=== PATIENT | male | born 1960 | race Caucasian/White ===

== ENCOUNTER 2017-06-12 23:45 | Inpatient (IN) | payer BC ==
[~2017-06-12] VITALS: Ht 172.7 cm; Wt 100.7 kg
[~2017-06-12 23:45] MED LIST: KEFLEX500 MG PO; MOTRIN800 MG PO
[2017-06-12 23:51] VITALS: BP 197/73
[2017-06-13] VITALS (11 sets, daily range): BP systolic 138–187; BP diastolic 58–118
[2017-06-13 00:40] LABS: HEMATOCRIT 46.4 % (42.0-52.0); HEMOGLOBIN 14.4 g/dl (14.0-18.0); MEAN CELL VOLUME 92.6 fl (80.0-94.0); MEAN CORPUSCULAR HGB 28.7 pg (27.0-31.0); MEAN PLATELET VOLUME 10.7 fl (9.6-12.3); PLATELET COUNT AUTOMATED 225 10*3/uL (130-400); RED BLOOD COUNT 5.01 10*6/uL (4.50-5.90); RED CELL DISTRI WIDTH 13.2 % (0-14.5); WHITE BLOOD COUNT 27.9 10*3/uL (4.8-10.8)
[2017-06-13 01:04] LABS: ALBUMIN 2.8 gm/dl (3.1-4.5); ALKALINE PHOSPHATASE 151 U/L (45-117); BUN 39 mg/dl (7-24); CHLORIDE 99 mmol/L (98-107); CREATININE 1.85 mg/dL (0.70-1.30); POTASSIUM 5.2 mmol/L (3.5-5.1); SGOT/AST 17 IU/L (3-35); SGPT/ALT 25 U/L (12-78); SODIUM 134 mmol/L (136-145); TOTAL PROTEIN 7.7 gm/dL (6.4-8.2)
[2017-06-13 01:07] LABS: PLATELET SUFFICIENCY NORMAL (NORMAL); TOTAL CELLS COUNTED 100 #CELLS
[2017-06-13 01:08] LABS: TROPONIN I < 0.015 ng/ml (<0.045)
[2017-06-13 01:33] LABS: ABG HCO3 3.5 mmol/l (22-26); ABG O2 SATURATION 97.8 % (95-97)
[2017-06-13 01:34] LABS: ABG BASE EXCESS -25.7 mmol/L (-2.0-2.0); ARTERIAL BLOOD GAS PH 7.126 (7.35-7.45)
[2017-06-13] MEDS ORDERED: QUINAPRIL20 MG PO (01:39)
[2017-06-13] MEDS ORDERED: Lopressor25 MG PO (01:40)
[2017-06-13] MEDS ORDERED: INVOKAMET 150-1 EACH PO (01:41)
[2017-06-13] MEDS ORDERED: FUROSEMIDE20 M1 PO (01:44)
[2017-06-13] MEDS ORDERED: KLOR-CON 1010 ME1 PO (01:46)
[2017-06-13] MEDS ORDERED: PRAVACHOL40 MG PO (01:47)
[2017-06-13 02:13] LABS: BILIRUBIN 1+ (NEGATIVE); BLOOD 2+ (NEGATIVE); CLARITY CLEAR (CLEAR); COLOR YELLOW (YELLOW); GLUCOSE 2+ (NEGATIVE); KETONE 3+ (NEGATIVE); LEUKO ESTERASE NEGATIVE (NEGATIVE); NITRITE NEGATIVE (NEGATIVE); UROBILINOGEN 0.2 E.U./dl (0.2-1.0)
[2017-06-13] MEDS ORDERED: HUMALOG 751 UNIT/0.0 SQ (03:27)
[2017-06-13] MEDS ORDERED: FARXIGA5 M1 PO (03:27)
[2017-06-13] MEDS ORDERED: SOLIQUA SQ (03:30)
[2017-06-13 04:19] LABS: HEMATOCRIT 45.5 % (42.0-52.0); HEMOGLOBIN 14.4 g/dl (14.0-18.0); MEAN CELL VOLUME 91.7 fl (80.0-94.0); MEAN CORPUSCULAR HGB CONC 31.6 g/dl (33.0-37.0); MEAN PLATELET VOLUME 10.1 fl (9.6-12.3); PLATELET COUNT AUTOMATED 221 10*3/uL (130-400); RED BLOOD COUNT 4.96 10*6/uL (4.50-5.90); RED CELL DISTRI WIDTH 13.2 % (0-14.5); WHITE BLOOD COUNT 26.2 10*3/uL (4.8-10.8)
[2017-06-13 04:31] LABS: ACT PARTIAL THROMBO TIME 33.9 SECONDS (20.8-31.5)
[2017-06-13 04:32] LABS: CREATININE 1.7 mg/dL (0.70-1.30); POTASSIUM 4.3 mmol/L (3.5-5.1)
[2017-06-13 04:37] LABS: PHOSPHOROUS 2.7 mg/dL (2.5-4.9)
[2017-06-13 04:43] LABS: THYROID STIM HORMONE (HS) 0.439 uIU/ml (0.358-4.75)
[2017-06-13 05:04] LABS: PLATELET SUFFICIENCY NORMAL (NORMAL); TOTAL CELLS COUNTED 100 #CELLS
[2017-06-13 08:15] LABS: VITAMIN D, 25-HYDROXY < 4.2 ng/mL (30-100)
[2017-06-13 08:41] LABS: CREATININE 1.66 mg/dL (0.70-1.30); POTASSIUM 4.5 mmol/L (3.5-5.1)
[2017-06-13 12:16] LABS: BUN 36 mg/dl (7-24); CHLORIDE 114 mmol/L (98-107); POTASSIUM 4.3 mmol/L (3.5-5.1); SODIUM 143 mmol/L (136-145)
[2017-06-13 12:17] LABS: TROPONIN I < 0.015 ng/ml (<0.045)
[2017-06-13 16:27] LABS: CREATININE 1.53 mg/dL (0.70-1.30); POTASSIUM 4.4 mmol/L (3.5-5.1)
[2017-06-14] VITALS: BP 110/62
[2017-06-14 04:00] VITALS: BP 110/62
[2017-06-14 05:33] LABS: BASO % 0.2 % (0.0-1.0); EOS % 0.2 % (1.0-4.0); HEMOGLOBIN 12.6 g/dl (14.0-18.0); LYMPH # 0.7 10*3/uL (1.3-4.4); LYMPH % 6.7 % (27.0-41.0); MEAN CORPUSCULAR HGB 28.5 pg (27.0-31.0); MEAN CORPUSCULAR HGB CONC 32.3 g/dl (33.0-37.0); MEAN PLATELET VOLUME 10.2 fl (9.6-12.3); MONO # 0.9 10*3/uL (0.1-1.0); MONO % 8.1 % (3.0-9.0); NEUT # 9.2 10*3/uL (2.3-7.9); NEUT % 83.5 % (47.0-73.0); PLATELET COUNT AUTOMATED 170 10*3/uL (130-400); RED BLOOD COUNT 4.42 10*6/uL (4.50-5.90); RED CELL DISTRI WIDTH 13.5 % (0-14.5); WHITE BLOOD COUNT 11.1 10*3/uL (4.8-10.8)
[2017-06-14 05:43] LABS: MEAN CELL VOLUME 88.2 fl (80.0-94.0)
[2017-06-14 05:49] LABS: ALBUMIN 2.4 gm/dl (3.1-4.5); BUN 27 mg/dl (7-24); CHLORIDE 109 mmol/L (98-107); CREATININE 1.24 mg/dL (0.70-1.30); LIPASE 154 U/L (73-393); POTASSIUM 3.8 mmol/L (3.5-5.1); SGOT/AST 12 IU/L (3-35); SGPT/ALT 18 U/L (12-78); SODIUM 138 mmol/L (136-145)
[2017-06-14 05:55] LABS: ALKALINE PHOSPHATASE 101 U/L (45-117)
[2017-06-14 05:57] LABS: PHOSPHOROUS 0.9 mg/dL (2.5-4.9)
[2017-06-14 08:00] VITALS: BP 153/75
[2017-06-14 12:00] VITALS: BP 156/59
[2017-06-14 16:00] VITALS: BP 157/78
[2017-06-14 20:00] VITALS: BP 178/61
[2017-06-15] VITALS: BP 133/51
[2017-06-15 07:09] LABS: BASO % 0.2 % (0.0-1.0); EOS % 0.4 % (1.0-4.0); HEMATOCRIT 38.7 % (42.0-52.0); HEMOGLOBIN 12.8 g/dl (14.0-18.0); LYMPH # 0.9 10*3/uL (1.3-4.4); LYMPH % 10.4 % (27.0-41.0); MEAN CELL VOLUME 86.6 fl (80.0-94.0); MEAN CORPUSCULAR HGB 28.6 pg (27.0-31.0); MEAN CORPUSCULAR HGB CONC 33.1 g/dl (33.0-37.0); MEAN PLATELET VOLUME 10.1 fl (9.6-12.3); MONO % 11.7 % (3.0-9.0); NEUT # 6.3 10*3/uL (2.3-7.9); PLATELET COUNT AUTOMATED 169 10*3/uL (130-400); RED BLOOD COUNT 4.47 10*6/uL (4.50-5.90); WHITE BLOOD COUNT 8.3 10*3/uL (4.8-10.8)
[2017-06-15 07:34] LABS: BUN 19 mg/dl (7-24); CHLORIDE 108 mmol/L (98-107); CREATININE 0.95 mg/dL (0.70-1.30); POTASSIUM 3.8 mmol/L (3.5-5.1); SODIUM 141 mmol/L (136-145)
[2017-06-15 08:00] VITALS: BP 177/64
[2017-06-15 12:00] VITALS: BP 143/62
[2017-06-15] MEDS ORDERED: INSULIN PEN NE1 EACH MC (13:52)
[2017-06-15] MEDS ORDERED: VITAMIN D-32000 UNIT PO (13:52)
[2017-06-15] MEDS ORDERED: HUMALOG100 UNIT/1 SQ (13:52)
[2017-06-15] MEDS ORDERED: LEVEMIR FL100 UNIT/1 SC (13:52)
== END 2017-06-15 14:00 | disposition home or self-care (01) | DRG 637 ==
LOC: ED 23:45 → EDHOLD 06-13 01:47 → 4E 06-13 01:47 → ICCU 06-13 01:59 → 4E 06-14 13:38 → 5E 06-15 13:45 → 4E 06-15 13:45
PROVIDERS: Emergency Medicine; Family Medicine Adult Medicine; Internal Medicine
DX: E10.10 Type 1 diabetes mellitus with ketoacidosis without coma (principal); N17.0 Acute kidney failure with tubular necrosis; E44.0 Moderate protein-calorie malnutrition; R65.10 Systemic inflammatory response syndrome (SIRS) of non-infectious origin without acute organ dysfunction; E87.5 Hyperkalemia; I16.1 Hypertensive emergency; Z68.33 Body mass index [BMI] 33.0-33.9, adult; D72.829 Elevated white blood cell count, unspecified; E78.5 Hyperlipidemia, unspecified; I10 Essential (primary) hypertension; Z87.442 Personal history of urinary calculi; Z82.49 Family history of ischemic heart disease and other diseases of the circulatory system; Z82.5 Family history of asthma and other chronic lower respiratory diseases; Z80.1 Family history of malignant neoplasm of trachea, bronchus and lung; Z79.899 Other long term (current) drug therapy; Z79.84 Long term (current) use of oral hypoglycemic drugs

== ENCOUNTER → 2017-06-24 | Outpatient (CLI) | payer BC ==
[~2017-06-24] MED LIST changes: +FARXIGA5 M1 PO; +FUROSEMIDE20 M1 PO; +HUMALOG 751 UNIT/0.0 SQ; +HUMALOG100 UNIT/1 SQ; +INSULIN PEN NE1 EACH MC; +INVOKAMET 150-1 EACH PO; +KLOR-CON 1010 ME1 PO; +LEVEMIR FL100 UNIT/1 SC; +Lopressor25 MG PO; +PRAVACHOL40 MG PO; +QUINAPRIL20 MG PO; +SOLIQUA SQ; +VITAMIN D-32000 UNIT PO
== END | disposition home or self-care (01) ==
LOC: LAB 00:48 → RESCLI 00:48
PROVIDERS: Internal Medicine
DX: E11.8 Type 2 diabetes mellitus with unspecified complications (principal); M25.551 Pain in right hip; R00.1 Bradycardia, unspecified; G62.9 Polyneuropathy, unspecified; R60.0 Localized edema; E78.5 Hyperlipidemia, unspecified; Z79.4 Long term (current) use of insulin

== ENCOUNTER → 2017-07-08 | Outpatient (CLI) | payer BC | END | disposition home or self-care (01) | LOC: RESCLI 02:24 | DX: I10 Essential (primary) hypertension (principal); E11.8 Type 2 diabetes mellitus with unspecified complications; E78.5 Hyperlipidemia, unspecified; R60.0 Localized edema; G62.9 Polyneuropathy, unspecified; R00.1 Bradycardia, unspecified; E66.9 Obesity, unspecified; Z79.4 Long term (current) use of insulin ==

== ENCOUNTER → 2017-08-05 | Outpatient (CLI) | payer BC | END | disposition home or self-care (01) | LOC: RESCLI 01:32 | DX: I10 Essential (primary) hypertension (principal); E78.5 Hyperlipidemia, unspecified; R60.0 Localized edema; G62.9 Polyneuropathy, unspecified; E11.8 Type 2 diabetes mellitus with unspecified complications; R00.1 Bradycardia, unspecified; E66.9 Obesity, unspecified; Z79.4 Long term (current) use of insulin ==

== ENCOUNTER → 2017-09-16 | Outpatient (CLI) | payer BC | END | disposition home or self-care (01) | LOC: RESCLI 03:47 → LAB 03:47 → RESCLI 11:22 | DX: E11.9 Type 2 diabetes mellitus without complications (principal) ==

== ENCOUNTER 2017-10-22 14:55 | Inpatient (IN) | payer BC ==
[~2017-10-22] VITALS: Ht 174 cm; Wt 110.7 kg
--- NOTE | ~2017-10-22 | PR ---
[place], [place] PROGRESS NOTE NAME: RAJENDRA CHO [facility] #: [id number] UNIT #: [id number] ROOM: 519 DOCTOR: YOSSI HUNTER MD BIRTHDATE: [birth year] DOS: 10/25/2017 CARDIOLOGY PROGRESS NOTE SUBJECTIVE: The patient was seen in his bedside at the [facility] on 10/25/2017 for followup of Lyme carditis. His monitor has remained stable and he has not had any further atrial fibrillation. He is breathing well. His rash is essentially resolved and he no longer has arthralgias. He tolerated the switch from heparin to rivaroxaban and is anxious for discharge. PHYSICAL EXAMINATION: VITAL SIGNS: Today, his pulse is 62 and regular, blood pressure is 150/76. He is afebrile. NECK: Supple. He has no jugular distention. Carotids are full. LUNGS: Respirations are unlabored. His chest is clear. HEART: Has a regular rhythm. He has a fourth heart sound, but no third heart sound or murmur. The PMI is not displaced. There is no precordial heave, lift or thrill. ABDOMEN: Soft and normally active without masses, organomegaly or bruits. EXTREMITIES: Showed no edema. The rash on his back and arms has mostly faded. IMPRESSION: 1. Febrile illness, most likely due to Lyme disease. 2. Elevated troponin with normal regional wall motion and a small pericardial effusion. 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 3. Variable AR interval, early in the patient's hospitalization, most likely due to the effect of Lyme disease on the conduction system. His AR interval has normalized over the last 2 days. 4. Paroxysmal atrial fibrillation. The patient had atrial fibrillation in the past. 5. Essential hypertension. 6. Type 2 diabetes mellitus. 7. CHADS-VASc score of 2 consistent with an increased risk for stroke. PLAN: The patient appears stable from a cardiac standpoint and may be discharged to home at any time from my perspective, I would like to see him back in the office in 4-8 weeks for followup of his paroxysmal atrial fibrillation. At the time of discharge, his medications are rivaroxaban 20 mg daily, metoprolol 25 mg b.i.d., simvastatin 40 mg at bedtime, lisinopril 20 mg b.i.d., cholecalciferol 2000 units daily, doxycycline 100 mg IV q. 12 hours (to be switched to p.o.), piperacillin 3.375 grams IV q. 6 hours and insulin as prescribed by his primary physicians. I thank the hospitalist physicians for asking our advice regarding his care. [place], [place] PROGRESS NOTE NAME: RAJENDRA CHO UNIT #: [id number] ROOM: [facility] DOCTOR: YOSSI HUNTER MD BIRTHDATE: [birth year] YOSSI HUNTER MD CM:PNTRANS [id number] YOSSI HUNTER MD 10/26/17 1834 interface
--- NOTE | ~2017-10-22 | CON ---
[place], [place] REPORT OF CONSULTATION [id number] UN[facility] #: [id number] ROOM: 519 DOCTOR: YOSSI HUNTER MD BIRTHDATE: [birth year] DOS: 10/23/2017 REASON FOR CONSULTATION: Elevated troponin, new onset atrial fibrillation, possible Lyme disease. HISTORY OF PRESENT ILLNESS: The patient is a 57-year-old man who denies any previous history of coronary artery disease or heart attack. He states that in 2003, he was hospitalized with palpitations and was found to be in atrial fibrillation. At that time, he was taking a quinine based leg cramp medication and there was a concern that may have triggered the atrial fibrillation. He converted spontaneously to sinus rhythm and to his knowledge has not had atrial fibrillation since then until now. The patient states that about a month ago, he was cutting wood with his brother. About 2 weeks ago, he began to feel poorly with flu-like symptoms. These include feverishness, diaphoresis and weakness. On 10/22/2017, he noticed that he had an erythematous rash and then came to the emergency room for evaluation. On presentation to the emergency room, he was toxic appearing. He had a fever of 103.6 associated with tachycardia. Blood pressure, however, was maintained. He was given fluids and his fever was controlled. Initial troponin level was mildly elevated. Through the night, he did go into atrial fibrillation and therefore, cardiology was consulted. Given the patient's flu-like symptoms and rash, there is a concern that he might have Lyme disease. The rash is atypical in that there is no central clearing, but he does have nummular lesions on his arms, legs, and back as well as his chest. PAST MEDICAL HISTORY: Includes: 1. Diabetes mellitus, on insulin. The patient states that he has had this since he was in his teenage years. He is not sure if he has any diabetic complications such as retinopathy or nephropathy. 2. Essential hypertension, which has been present for about 15-20 years. 3. Hyperlipidemia. 4. Hospitalization with diabetic ketoacidosis in early 2017. 5. Hospitalization 10/22/2017 with fevers and rash suggesting the possibility of Lyme disease. FAMILY HISTORY: The patient's father probably had atherosclerotic heart disease with a "silent" heart attack in his early 50s. He subsequently required pacer therapy and did develop heart failure. His mother had lung cancer. Brothers and sisters are alive and well. REVIEW OF SYSTEMS: The patient denies diplopia or recent change in vision. He denies syncope or lightheadedness. He does have occasional palpitations. He denies syncope. He denies focal weakness. He has not had nausea or vomiting recently, although his appetite has been poor for the last week or two. He denies hemoptysis or hematemesis. He denies change in his bowel or bladder habits and denies blood in his stools or urine. He has had fevers and chills at home with soaking sweats. He does not think he has lost any weight. He does [place], [place] REPORT OF CONSULTATION NAME: RAJENDRA CHO UNIT #: [id number] ROOM: [facility] DOCTOR: YOSSI HUNTER MD BIRTHDATE: [birth year] have chronic peripheral edema. The remainder of the review of systems is negative except as noted above. MEDICATIONS: Prior to admission, vitamin D 2000 units daily, furosemide 40 mg daily, metoprolol tartrate 25 mg daily, potassium 10 mEq daily, pravastatin 40 mg daily, quinapril 20 mg b.i.d., Levemir insulin 65 units subcutaneously b.i.d. with Humalog 20 units a.c. and at bedtime. ALLERGIES: The patient has no known drug allergies. SOCIAL HISTORY: The patient is and lives alone. 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 He does not currently smoke or consume significant amounts of alcohol. PHYSICAL EXAMINATION: GENERAL: The patient is a well-nourished, white male who is awake, alert and oriented. VITAL SIGNS: Pulse is 70 and regular, blood pressure is 110/60. He is currently afebrile. He weighs 110.7 kg and has a body mass index 36.6. HEENT: Normocephalic and atraumatic. Extraocular muscles are intact. Sclerae are clear. Pupils equal, round and react to light. The oral mucosa is moist. Tongue is midline. NECK: Supple. He has no jugular distention. Carotids are full. I heard no bruits. He had no neck or supraclavicular masses, no thyromegaly. LUNGS: Respirations are unlabored. His chest is clear to auscultation and percussion. He has no presacral edema or chest wall tenderness. CARDIOVASCULAR: His heart has a regular rhythm. He has a fourth heart sound, but no third heart sound. There is no significant murmur. He has no rubs. The PMI is not displaced. There is no precordial heave, lift or thrill. ABDOMEN: Soft and normally active without masses, organomegaly or bruits. EXTREMITIES: Showed 2+ edema of the ankles. Pedal pulses are easily palpated in the feet bilaterally. SKIN: Does have an erythematous, slightly raised round rash on his back, chest, arms and legs. LABORATORY DATA: I reviewed the patient's electrocardiograms. On admission, he had sinus tachycardia with a leftward axis. KS interval on admission was about 140 milliseconds. Overnight, he did go into atrial fibrillation with a rapid ventricular response, but converted back to sinus rhythm at 10:30 this morning. This morning, his KS interval is somewhat prolonged compared to admission and is currently about 200 milliseconds. He has not shown any signs of AV block. Hemoglobin is 11, hematocrit 35.5. There are 18,800 white cells, platelet count is 238,000. Troponin levels have been mildly elevated, on admission, he was 0.079 and has risen to about 0.323. Currently, the troponin level is 0.180. Sodium is 141, potassium 3.7, chloride 107, CO2 26, BUN 13, creatinine 1.33. I reviewed the patient's echocardiogram today. He does have mild cardiomegaly with normal regional wall motion and overall systolic function. He has no significant valvular disease. There is a small, hemodynamically insignificant [place], [place] REPORT OF CONSULTATION NAME: RAJENDRA CHO UNIT #: [id number] ROOM: [facility] DOCTOR: YOSSI HUNTER MD BIRTHDATE: [birth year] pericardial effusion present. IMPRESSIONS: 1. Febrile illness, possibly due to Lyme disease. 2. Elevated troponin with normal regional wall motion and small pericardial effusion. These findings could be consistent with Lyme carditis. 3. Variable KS interval. This also could be consistent with the effect of Lyme disease on conduction system. 4. Paroxysmal atrial fibrillation. Based on the patient's history of having atrial fibrillation in 2003, this probably is recurrent paroxysmal atrial fibrillation, possibly triggered by his febrile illness, but not caused by Lyme carditis directly. 5. Essential hypertension. 6. Diabetes mellitus. 7. CHADS-VASc score equals 2 consistent with elevated risk for stroke. Since the patient does have a CHADS-VASc score of 2, I would strongly recommend long-term anticoagulation with a direct oral anticoagulant such as rivaroxaban or apixaban. Rivaroxaban may be the better choice for compliance. I will be getting urine microalbumin level to determine if we should be screening him for nephrotic syndrome since he does have peripheral edema in the setting of normal left ventricular systolic function. Since his KS intervals are variable, I would monitor him closely for signs of progressive AV block. Hopefully, after his antibiotics have been started and become effective, this will not be a persistent problem. We will follow the patient with his other physicians and I thank the hospitalist doctors for asking our advice regarding his care. YOSSI HUNTER MD CM:CONSTR:REPORT OF CONSULTATION 1253 10/23/17 1558 interface
--- NOTE | ~2017-10-22 | PR ---
[place], [place] PROGRESS NOTE NAME: RAJENDRA CHO [facility] #: [id number] UNIT #: [id number] ROOM: 519 DOCTOR: YOSSI HUNTER MD BIRTHDATE: [birth year] DOS: 10/24/2017 SUBJECTIVE: The patient was seen at his bedside today 10/24/2017 for followup of paroxysmal atrial fibrillation and possible Lyme carditis. The patient tells me that he feels much better today, 24 hours after having been started on antibiotics. His muscular aching has resolved and he has a lot more energy. He denies any chest pain, palpitations, lightheadedness or syncope and his monitor has continued to show sinus rhythm. Yesterday afternoon, the RI interval was at the upper limits of normal at 200 milliseconds. It is now decreased to 160 milliseconds. His rash is also fading. PHYSICAL EXAMINATION: VITAL SIGNS: Today, pulse is 63 and regular, blood pressure is 134/69. He is afebrile. NECK: Supple. He has no jugular distention. Carotids are full. He has no bruits. LUNGS: Respirations are unlabored. His chest is clear. HEART: Has a regular rhythm. He has a fourth heart sound, but no third heart sound or murmur. There is no rub. The PMI is not displaced and there is no precordial heave, lift or thrill. ABDOMEN: Soft and normally active without masses, organomegaly or bruits. EXTREMITIES: Showed no edema. LABORATORY DATA: His electrocardiogram this morning showed sinus rhythm with small inferior Q-waves, but no other changes. There is no ST elevation and the RI interval is normal at 160 milliseconds. QT interval was also normal. The patient did have an echocardiogram on 10/23/2017 which showed atrial fibrillation with mild left ventricular dilation and mild concentric left ventricular hypertrophy. Left ventricular segmental wall motion and systolic function were normal. He did have a mildly dilated left atrium. The IVC was dilated and he did have a mild circumferential pericardial effusion, but there was no evidence for tamponade. IMPRESSION: 1. Febrile illness, possibly due to Lyme disease. 2. Elevated troponin with normal regional wall motion and a small pericardial effusion. 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 3. Variable RI interval, possibly due to the effect of Lyme disease on the conduction system. His RI interval has improved since yesterday. 4. Paroxysmal atrial fibrillation. The patient has had atrial fibrillation in the past and therefore this is probably recurrent paroxysmal atrial fibrillation, which was probably triggered on this occasion by his febrile illness, but not caused by Lyme carditis directly. 5. Essential hypertension. 6. Type 2 diabetes mellitus. 7. CHADS-VASc score of 2 consistent with elevated risk for stroke. [place], [place] PROGRESS NOTE NAME: RAJENDRA CHO UNIT #: [id number] ROOM: [facility] DOCTOR: YOSSI HUNTER MD BIRTHDATE: [birth year] PLAN: We will stop heparin and place him on rivaroxaban once a day. From my perspective, he could be discharged to home. We will remain available to see him as requested and we would be happy to follow up with him in 4-8 weeks for his paroxysmal atrial fibrillation. I thank the hospitalist physicians for asking our advice regarding his care. YOSSI HUNTER MD CM:PNTRANS 1820 [id number] YOSSI HUNTER MD 10/25/17 0038 interface
[2017-10-22 14:58] VITALS: BP 164/69
[2017-10-22 15:33] LABS: BASO # 0.1 10*3/uL (0.0-0.1); BASO % 0.4 % (0.0-1.0); EOS # 0.1 10*3/uL (0.0-0.4); EOS % 0.4 % (1.0-4.0); HEMATOCRIT 35.7 % (42.0-52.0); HEMOGLOBIN 11.6 g/dl (14.0-18.0); LYMPH # 1.3 10*3/uL (1.3-4.4); MEAN CELL VOLUME 87.1 fl (80.0-94.0); MEAN CORPUSCULAR HGB 28.3 pg (27.0-31.0); MEAN CORPUSCULAR HGB CONC 32.5 g/dl (33.0-37.0); MONO # 0.5 10*3/uL (0.1-1.0); MONO % 2.7 % (3.0-9.0); NEUT # 16.4 10*3/uL (2.3-7.9); NEUT % 88.9 % (47.0-73.0); PLATELET COUNT AUTOMATED 258 10*3/uL (130-400); RED CELL DISTRI WIDTH 12.9 % (0-14.5); WHITE BLOOD COUNT 18.5 10*3/uL (4.8-10.8)
[2017-10-22 15:44] LABS: ACT PARTIAL THROMBO TIME 25.9 SECONDS (20.8-31.5)
[2017-10-22 15:51] LABS: ALBUMIN 2.6 gm/dl (3.1-4.5); ALKALINE PHOSPHATASE 291 U/L (45-117); BUN 13 mg/dl (7-24); CHLORIDE 102 mmol/L (98-107); CKMB 0.9 ng/ml (0.5-3.6); CREATININE 1.28 mg/dL (0.70-1.30); LIPASE 52 U/L (73-393); POTASSIUM 3.5 mmol/L (3.5-5.1); SGOT/AST 54 IU/L (3-35); SGPT/ALT 106 U/L (12-78); SODIUM 137 mmol/L (136-145)
[2017-10-22 15:55] LABS: TROPONIN I 0.079 ng/ml (<0.045)
[2017-10-22 16:04] LABS: BILIRUBIN NEGATIVE (NEGATIVE); BLOOD 1+ (NEGATIVE); CLARITY CLEAR (CLEAR); COLOR YELLOW (YELLOW); GLUCOSE NEGATIVE (NEGATIVE); KETONE TRACE (NEGATIVE); LEUKO ESTERASE TRACE (NEGATIVE); NITRITE NEGATIVE (NEGATIVE); SPECIFIC GRAVITY 1.025 (1.005-1.030)
[2017-10-22 16:13] LABS: BACTERIA 1+; EPITHELIAL CELLS 0-2
[2017-10-22 16:18] VITALS: BP 130/47
[2017-10-22 17:11] VITALS: BP 111/54
[2017-10-22 17:45] VITALS: BP 141/59
[2017-10-22] MEDS ORDERED: LEVEMIR FL100 UNIT/1 SC (18:14)
[2017-10-22] MEDS ORDERED: HUMALOG100 UNIT/1 SQ (18:16)
[2017-10-22] MEDS ORDERED: LASIX40 MG PO (18:25)
[2017-10-22 20:00] VITALS: BP 132/56
[2017-10-23] VITALS: BP 115/54
[2017-10-23 03:51] LABS: HEMATOCRIT 35.5 % (42.0-52.0); MEAN CELL VOLUME 89.6 fl (80.0-94.0); MEAN CORPUSCULAR HGB 27.8 pg (27.0-31.0); PLATELET COUNT AUTOMATED 238 10*3/uL (130-400); RED BLOOD COUNT 3.96 10*6/uL (4.50-5.90); RED CELL DISTRI WIDTH 13.1 % (0-14.5); WHITE BLOOD COUNT 18.8 10*3/uL (4.8-10.8)
[2017-10-23 04:11] LABS: ALBUMIN 2.2 gm/dl (3.1-4.5); ALKALINE PHOSPHATASE 313 U/L (45-117); BUN 13 mg/dl (7-24); CHLORIDE 107 mmol/L (98-107); CHOLESTEROL 117 mg/dL (<200); CREATININE 1.33 mg/dL (0.70-1.30); FREE T4 1.22 ng/dl (0.76-1.46); HDL CHOLESTEROL 27 mg/dl (40-60); LDL CHOLESTEROL 73 mg/dL (9-159); PHOSPHOROUS 2.6 mg/dL (2.5-4.9); POTASSIUM 3.7 mmol/L (3.5-5.1); SGOT/AST 65 IU/L (3-35); SGPT/ALT 115 U/L (12-78); SODIUM 141 mmol/L (136-145); TOTAL PROTEIN 6.2 gm/dL (6.4-8.2); TRIGLYCERIDES 84 mg/dl (<150); VLDL CHOLESTEROL 17 mg/dL (6-40)
[2017-10-23 04:12] LABS: PLATELET SUFFICIENCY NORMAL (NORMAL); TOTAL CELLS COUNTED 100 #CELLS
[2017-10-23 07:03] LABS: VITAMIN D, 25-HYDROXY 19.5 ng/mL (30-100)
[2017-10-23 08:00] VITALS: BP 124/67
[2017-10-23 12:00] VITALS: BP 111/60
[2017-10-23 16:00] VITALS: BP 104/49
[2017-10-23 20:00] VITALS: BP 109/49
[2017-10-24] VITALS: BP 103/47
[2017-10-24 04:40] LABS: BASO % 0.4 % (0.0-1.0); EOS # 0.3 10*3/uL (0.0-0.4); HEMATOCRIT 31.6 % (42.0-52.0); HEMOGLOBIN 9.8 g/dl (14.0-18.0); LYMPH # 2.2 10*3/uL (1.3-4.4); LYMPH % 20.4 % (27.0-41.0); MEAN CELL VOLUME 90.3 fl (80.0-94.0); MEAN PLATELET VOLUME 9.7 fl (9.6-12.3); MONO # 0.6 10*3/uL (0.1-1.0); MONO % 5.6 % (3.0-9.0); NEUT # 7.4 10*3/uL (2.3-7.9); NEUT % 68.8 % (47.0-73.0); PLATELET COUNT AUTOMATED 245 10*3/uL (130-400); RED CELL DISTRI WIDTH 13.2 % (0-14.5); WHITE BLOOD COUNT 10.7 10*3/uL (4.8-10.8)
[2017-10-24 04:57] LABS: ALKALINE PHOSPHATASE 272 U/L (45-117); BUN 14 mg/dl (7-24); CHLORIDE 110 mmol/L (98-107); CREATININE 1.23 mg/dL (0.70-1.30); PHOSPHOROUS 2.6 mg/dL (2.5-4.9); POTASSIUM 3.8 mmol/L (3.5-5.1); SGOT/AST 40 IU/L (3-35); SGPT/ALT 84 U/L (12-78); SODIUM 144 mmol/L (136-145)
[2017-10-24 08:00] VITALS: BP 125/55
[2017-10-24 12:00] VITALS: BP 111/70
[2017-10-24 16:00] VITALS: BP 134/69
[2017-10-24 19:00] VITALS: BP 154/68
[2017-10-25] VITALS: BP 125/52
[2017-10-25 06:25] LABS: HEMOGLOBIN 10.1 g/dl (14.0-18.0); MEAN CELL VOLUME 90.4 fl (80.0-94.0); MEAN CORPUSCULAR HGB 27.7 pg (27.0-31.0); MEAN CORPUSCULAR HGB CONC 30.6 g/dl (33.0-37.0); MEAN PLATELET VOLUME 10.4 fl (9.6-12.3); PLATELET COUNT AUTOMATED 300 10*3/uL (130-400); RED BLOOD COUNT 3.65 10*6/uL (4.50-5.90); RED CELL DISTRI WIDTH 13.2 % (0-14.5); WHITE BLOOD COUNT 6.6 10*3/uL (4.8-10.8)
[2017-10-25 06:36] LABS: CREATININE,URINE 93.5 mg/dL (Not Estab.); MICRO ALBUMIN/CRE RATIO 470.2 (0.0-30.0)
[2017-10-25 06:48] LABS: BUN 13 mg/dl (7-24); CHLORIDE 110 mmol/L (98-107); CREATININE 1.09 mg/dL (0.70-1.30); POTASSIUM 3.7 mmol/L (3.5-5.1); SODIUM 144 mmol/L (136-145)
[2017-10-25 07:30] LABS: PLATELET SUFFICIENCY NORMAL (NORMAL); TOTAL CELLS COUNTED 100 #CELLS
[2017-10-25 08:00] VITALS: BP 131/62
[2017-10-25 12:00] VITALS: BP 150/76
[2017-10-25] MEDS ORDERED: XARE20MG PO (13:03)
[2017-10-25] MEDS ORDERED: LOPRESSOR25 MG PO (13:03)
[2017-10-25] MEDS ORDERED: DOXYCYCLINE100 M3 PO (13:04)
[2017-10-27 17:10] LABS: IGG P18 AB Absent (.); IGG P23 AB Present (.); IGG P28 AB Absent (.); IGG P30 AB Absent (.); IGG P39 AB Absent (.); IGG P41 AB Present (.); IGG P45 AB Absent (.); IGG P58 AB Absent (.); IGG P63 AB Absent (.); IGG P66 AB Absent (.); IGM P23 AB Present (.); IGM P39 AB Absent (.); IGM P41 AB Present (.); LYME IGG WB INTERPRETATION Negative (.); LYME IGM WB INTERPRETATION Positive (.)
[2017-10-28 07:48] LABS: LYME REFLEX CHARGE CHG
== END 2017-10-25 14:29 | disposition home or self-care (01) | DRG 871 ==
LOC: ED 14:55 → 5E 16:44 → EDHOLD 16:44 → 5E 17:12
PROVIDERS: Internal Medicine; Internal Medicine Cardiovascular Disease; Nurse Practitioner Family
DX: A41.9 Sepsis, unspecified organism (principal); E43 Unspecified severe protein-calorie malnutrition; A69.20 Lyme disease, unspecified; L03.113 Cellulitis of right upper limb; N39.0 Urinary tract infection, site not specified; R65.20 Severe sepsis without septic shock; D64.9 Anemia, unspecified; I48.0 Paroxysmal atrial fibrillation; E78.5 Hyperlipidemia, unspecified; R31.9 Hematuria, unspecified; I10 Essential (primary) hypertension; E11.65 Type 2 diabetes mellitus with hyperglycemia; Z79.4 Long term (current) use of insulin; Z79.899 Other long term (current) drug therapy; Z72.89 Other problems related to lifestyle; Z82.49 Family history of ischemic heart disease and other diseases of the circulatory system; Z80.1 Family history of malignant neoplasm of trachea, bronchus and lung; Z82.5 Family history of asthma and other chronic lower respiratory diseases; Z68.36 Body mass index [BMI] 36.0-36.9, adult

== ENCOUNTER → 2017-10-27 | Outpatient (CLI) | payer BC ==
[~2017-10-27] MED LIST changes: +DOXYCYCLINE100 M3 PO; +LASIX40 MG PO; +LOPRESSOR25 MG PO; +XARE20MG PO
== END | disposition home or self-care (01) ==
LOC: RESCLI 04:33
DX: I10 Essential (primary) hypertension (principal); E11.8 Type 2 diabetes mellitus with unspecified complications; E78.5 Hyperlipidemia, unspecified; I48.0 Paroxysmal atrial fibrillation; G62.9 Polyneuropathy, unspecified; R00.1 Bradycardia, unspecified; E66.9 Obesity, unspecified; R60.0 Localized edema

== ENCOUNTER → 2018-01-08 | Outpatient (CLI) | payer BC | END | disposition home or self-care (01) | LOC: CARD 01-05 13:00 | DX: I34.0 Nonrheumatic mitral (valve) insufficiency (principal); A69.29 Other conditions associated with Lyme disease; A69.20 Lyme disease, unspecified; I30.9 Acute pericarditis, unspecified ==

== ENCOUNTER → 2018-01-16 | Outpatient (CLI) | payer BC ==
[2018-01-16 08:35] LABS: BASO # 0.1 10*3/uL (0.0-0.1); BASO % 0.9 % (0.0-1.0); EOS # 0.2 10*3/uL (0.0-0.4); EOS % 2.5 % (1.0-4.0); HEMATOCRIT 42.9 % (42.0-52.0); HEMOGLOBIN 14.2 g/dl (14.0-18.0); LYMPH # 1.8 10*3/uL (1.3-4.4); LYMPH % 25.5 % (27.0-41.0); MEAN CELL VOLUME 85.8 fl (80.0-94.0); MEAN CORPUSCULAR HGB 28.4 pg (27.0-31.0); MEAN CORPUSCULAR HGB CONC 33.1 g/dl (33.0-37.0); MEAN PLATELET VOLUME 10.5 fl (9.6-12.3); MONO # 0.6 10*3/uL (0.1-1.0); MONO % 8.6 % (3.0-9.0); NEUT # 4.3 10*3/uL (2.3-7.9); NEUT % 62.2 % (47.0-73.0); PLATELET COUNT AUTOMATED 184 10*3/uL (130-400); RED CELL DISTRI WIDTH 12.7 % (0-14.5); WHITE BLOOD COUNT 6.9 10*3/uL (4.8-10.8)
[2018-01-16 09:01] LABS: BUN 21 mg/dl (7-24); CHLORIDE 106 mmol/L (98-107); CREATININE 1.17 mg/dL (0.70-1.30); SODIUM 141 mmol/L (136-145)
== END | disposition home or self-care (01) ==
LOC: LAB 08:02
PROVIDERS: Internal Medicine
DX: E11.9 Type 2 diabetes mellitus without complications (principal)

== ENCOUNTER → 2018-02-02 | Outpatient (CLI) | payer BC | END | disposition home or self-care (01) | LOC: RESCLI 00:57 | DX: I48.0 Paroxysmal atrial fibrillation (principal); E11.9 Type 2 diabetes mellitus without complications; I10 Essential (primary) hypertension; E78.5 Hyperlipidemia, unspecified; G62.9 Polyneuropathy, unspecified; E66.9 Obesity, unspecified; F51.01 Primary insomnia; E55.9 Vitamin D deficiency, unspecified; Z79.4 Long term (current) use of insulin; Z79.82 Long term (current) use of aspirin; Z79.899 Other long term (current) drug therapy; Z79.84 Long term (current) use of oral hypoglycemic drugs ==

== ENCOUNTER → 2018-04-15 | Outpatient (CLI) | payer BC | END | disposition home or self-care (01) | LOC: RESCLI 04:08 | DX: E11.9 Type 2 diabetes mellitus without complications (principal); I10 Essential (primary) hypertension; E78.5 Hyperlipidemia, unspecified; G62.9 Polyneuropathy, unspecified; E66.9 Obesity, unspecified; I48.0 Paroxysmal atrial fibrillation; E78.00 Pure hypercholesterolemia, unspecified; G44.039 Episodic paroxysmal hemicrania, not intractable; E55.9 Vitamin D deficiency, unspecified; F51.01 Primary insomnia; Z79.899 Other long term (current) drug therapy; Z79.4 Long term (current) use of insulin ==

== ENCOUNTER → 2018-05-01 | Outpatient (CLI) | payer BC ==
[2018-05-01 09:11] LABS: BUN 25 mg/dl (7-24); CHLORIDE 109 mmol/L (98-107); CREATININE 1.15 mg/dL (0.70-1.30); POTASSIUM 4.3 mmol/L (3.5-5.1); SODIUM 146 mmol/L (136-145)
== END | disposition home or self-care (01) ==
LOC: LAB 08:28
PROVIDERS: Internal Medicine
DX: E11.9 Type 2 diabetes mellitus without complications (principal)

== ENCOUNTER → 2018-05-18 | Outpatient (CLI) | payer BC | END | disposition home or self-care (01) | LOC: RESCLI 01:44 | DX: E11.9 Type 2 diabetes mellitus without complications (principal); J18.9 Pneumonia, unspecified organism; I10 Essential (primary) hypertension; E78.5 Hyperlipidemia, unspecified; G62.9 Polyneuropathy, unspecified; E66.9 Obesity, unspecified; I48.0 Paroxysmal atrial fibrillation; E78.00 Pure hypercholesterolemia, unspecified; G44.039 Episodic paroxysmal hemicrania, not intractable; F51.01 Primary insomnia; E55.9 Vitamin D deficiency, unspecified; Z79.4 Long term (current) use of insulin; Z79.899 Other long term (current) drug therapy ==

== ENCOUNTER → 2018-08-10 | Outpatient (CLI) | payer BC | END | disposition home or self-care (01) | LOC: LAB 03:53 | DX: E11.9 Type 2 diabetes mellitus without complications (principal) ==

== ENCOUNTER → 2018-09-02 | Outpatient (CLI) | payer BC | END | disposition home or self-care (01) | LOC: RESCLI 01:30 | DX: E78.5 Hyperlipidemia, unspecified (principal); E11.9 Type 2 diabetes mellitus without complications; I10 Essential (primary) hypertension; G62.9 Polyneuropathy, unspecified; E66.9 Obesity, unspecified; I48.0 Paroxysmal atrial fibrillation; E78.00 Pure hypercholesterolemia, unspecified; G44.039 Episodic paroxysmal hemicrania, not intractable; F51.01 Primary insomnia; E55.9 Vitamin D deficiency, unspecified; D22.9 Melanocytic nevi, unspecified; Z88.8 Allergy status to other drugs, medicaments and biological substances; Z79.899 Other long term (current) drug therapy ==

== ENCOUNTER → 2018-11-18 | Outpatient (CLI) | payer BC | END | disposition home or self-care (01) | LOC: RESCLI 01:38 | DX: Z12.5 Encounter for screening for malignant neoplasm of prostate (principal); Z12.11 Encounter for screening for malignant neoplasm of colon; E11.9 Type 2 diabetes mellitus without complications; I10 Essential (primary) hypertension; E78.5 Hyperlipidemia, unspecified; G62.9 Polyneuropathy, unspecified; E66.9 Obesity, unspecified; I48.0 Paroxysmal atrial fibrillation; E78.00 Pure hypercholesterolemia, unspecified; G44.039 Episodic paroxysmal hemicrania, not intractable; F51.01 Primary insomnia; E55.9 Vitamin D deficiency, unspecified; D22.9 Melanocytic nevi, unspecified; J45.909 Unspecified asthma, uncomplicated; Z79.899 Other long term (current) drug therapy ==

== ENCOUNTER → 2018-11-23 | Outpatient (CLI) | payer BC ==
[2018-11-23 05:53] LABS: ALBUMIN 3.3 gm/dl (3.1-4.5); ALKALINE PHOSPHATASE 82 U/L (45-117); BUN 25 mg/dl (7-24); CHLORIDE 106 mmol/L (98-107); CHOLESTEROL 148 mg/dL (<200); CREATININE 1.23 mg/dL (0.70-1.30); HDL CHOLESTEROL 44 mg/dl (40-60); LDL CHOLESTEROL 73 mg/dL (9-159); POTASSIUM 4.7 mmol/L (3.5-5.1); SGOT/AST 22 IU/L (3-35); SGPT/ALT 35 U/L (12-78); SODIUM 142 mmol/L (136-145); TOTAL PROTEIN 6.8 gm/dL (6.4-8.2); TRIGLYCERIDES 155 mg/dl (<150); VLDL CHOLESTEROL 31 mg/dL (6-40)
[2018-11-23 06:03] LABS: BASO # 0.1 10*3/uL (0.0-0.1); BASO % 0.5 % (0.0-1.0); EOS # 0.1 10*3/uL (0.0-0.4); EOS % 1.3 % (1.0-4.0); HEMATOCRIT 44.5 % (42.0-52.0); HEMOGLOBIN 14.5 g/dl (14.0-18.0); LYMPH # 1.4 10*3/uL (1.3-4.4); MEAN CELL VOLUME 89.2 fl (80.0-94.0); MEAN CORPUSCULAR HGB 29.1 pg (27.0-31.0); MEAN CORPUSCULAR HGB CONC 32.6 g/dl (33.0-37.0); MEAN PLATELET VOLUME 10.8 fl (9.6-12.3); MONO # 0.7 10*3/uL (0.1-1.0); MONO % 7.5 % (3.0-9.0); NEUT # 7.4 10*3/uL (2.3-7.9); NEUT % 76.5 % (47.0-73.0); PLATELET COUNT AUTOMATED 201 10*3/uL (130-400); RED BLOOD COUNT 4.99 10*6/uL (4.50-5.90); WHITE BLOOD COUNT 9.6 10*3/uL (4.8-10.8)
== END | disposition home or self-care (01) ==
LOC: LAB 04:46
PROVIDERS: Internal Medicine
DX: Z12.9 Encounter for screening for malignant neoplasm, site unspecified (principal); E78.5 Hyperlipidemia, unspecified; E11.9 Type 2 diabetes mellitus without complications

== ENCOUNTER → 2019-03-08 | Outpatient (CLI) | payer BC ==
[2019-03-08 10:24] LABS: BUN 27 mg/dl (7-24); CHLORIDE 107 mmol/L (98-107); CHOLESTEROL 153 mg/dL (<200); CREATININE 1.23 mg/dL (0.70-1.30); HDL CHOLESTEROL 47 mg/dl (40-60); LDL CHOLESTEROL 80 mg/dL (9-159); POTASSIUM 4.7 mmol/L (3.5-5.1); SODIUM 142 mmol/L (136-145); TRIGLYCERIDES 128 mg/dl (<150); VLDL CHOLESTEROL 26 mg/dL (6-40)
== END | disposition home or self-care (01) ==
LOC: RESCLI 00:30
PROVIDERS: Internal Medicine
DX: Z12.11 Encounter for screening for malignant neoplasm of colon (principal); L91.8 Other hypertrophic disorders of the skin; I10 Essential (primary) hypertension; E11.65 Type 2 diabetes mellitus with hyperglycemia; E55.9 Vitamin D deficiency, unspecified; E78.5 Hyperlipidemia, unspecified; I48.0 Paroxysmal atrial fibrillation; Z79.4 Long term (current) use of insulin; Z79.899 Other long term (current) drug therapy

== ENCOUNTER → 2019-04-12 | Outpatient (CLI) | payer BC | END | disposition home or self-care (01) | LOC: RESCLI 01:16 | DX: I10 Essential (primary) hypertension (principal); E11.65 Type 2 diabetes mellitus with hyperglycemia; E78.5 Hyperlipidemia, unspecified; E55.9 Vitamin D deficiency, unspecified; D22.9 Melanocytic nevi, unspecified; L91.8 Other hypertrophic disorders of the skin; I48.0 Paroxysmal atrial fibrillation; Z79.4 Long term (current) use of insulin; Z79.899 Other long term (current) drug therapy ==

== ENCOUNTER → 2019-11-18 | Outpatient (CLI) | payer BC | END | disposition home or self-care (01) | LOC: RESCLI 03:49 | DX: I10 Essential (primary) hypertension (principal); E11.8 Type 2 diabetes mellitus with unspecified complications; I48.0 Paroxysmal atrial fibrillation; F51.01 Primary insomnia; E55.9 Vitamin D deficiency, unspecified; E78.5 Hyperlipidemia, unspecified; Z12.11 Encounter for screening for malignant neoplasm of colon; J45.909 Unspecified asthma, uncomplicated; Z79.899 Other long term (current) drug therapy; Z98.890 Other specified postprocedural states; Z79.4 Long term (current) use of insulin ==

== ENCOUNTER → 2020-02-28 | Outpatient (CLI) | payer BC ==
[2020-02-28 05:59] LABS: BASO # 0.1 10*3/uL (0.0-0.1); BASO % 0.7 % (0.0-1.0); EOS # 0.2 10*3/uL (0.0-0.4); EOS % 2.2 % (1.0-4.0); HEMATOCRIT 41.4 % (42.0-52.0); LYMPH # 2.2 10*3/uL (1.3-4.4); LYMPH % 26.9 % (27.0-41.0); MEAN CELL VOLUME 87.7 fl (80.0-94.0); MEAN CORPUSCULAR HGB 28.4 pg (27.0-31.0); MEAN CORPUSCULAR HGB CONC 32.4 g/dl (33.0-37.0); MEAN PLATELET VOLUME 10.7 fl (9.6-12.3); MONO # 0.7 10*3/uL (0.1-1.0); MONO % 8.4 % (3.0-9.0); NEUT % 61.7 % (47.0-73.0); PLATELET COUNT AUTOMATED 197 10*3/uL (130-400); RED BLOOD COUNT 4.72 10*6/uL (4.50-5.90); RED CELL DISTRI WIDTH 12.7 % (0-14.5); WHITE BLOOD COUNT 8.1 10*3/uL (4.8-10.8)
[2020-02-28 06:30] LABS: ALBUMIN 3.2 gm/dl (3.1-4.5); ALKALINE PHOSPHATASE 91 U/L (45-117); BUN 23 mg/dl (7-24); CHLORIDE 109 mmol/L (98-107); CHOLESTEROL 199 mg/dL (<200); CREATININE 1.07 mg/dL (0.70-1.30); HDL CHOLESTEROL 47 mg/dl (40-60); LDL CHOLESTEROL 106 mg/dL (9-159); POTASSIUM 4.1 mmol/L (3.5-5.1); SGOT/AST 23 IU/L (3-35); SGPT/ALT 29 U/L (12-78); SODIUM 145 mmol/L (136-145); TOTAL PROTEIN 6.9 gm/dL (6.4-8.2); TRIGLYCERIDES 228 mg/dl (<150); VLDL CHOLESTEROL 46 mg/dL (6-40)
[2020-02-29 11:09] LABS: CREATININE,URINE 34.5 mg/dL (Not Estab.)
== END | disposition home or self-care (01) ==
LOC: LAB 04:39
PROVIDERS: ATTEND Internal Medicine
DX: I10 Essential (primary) hypertension (principal); E78.5 Hyperlipidemia, unspecified; E55.9 Vitamin D deficiency, unspecified

== ENCOUNTER → 2020-02-29 | Outpatient (CLI) | payer BC | END | disposition home or self-care (01) | LOC: RESCLI 01:13 | PROVIDERS: ATTEND Internal Medicine Nephrology | DX: E55.9 Vitamin D deficiency, unspecified (principal); M81.0 Age-related osteoporosis without current pathological fracture; I10 Essential (primary) hypertension; I48.0 Paroxysmal atrial fibrillation; F51.01 Primary insomnia; E78.5 Hyperlipidemia, unspecified; E11.21 Type 2 diabetes mellitus with diabetic nephropathy ==

== ENCOUNTER → 2020-06-11 | Outpatient (CLI) | payer BC ==
[2020-06-12 10:08] LABS: CREATININE,URINE 113.7 mg/dL (Not Estab.)
== END | disposition home or self-care (01) ==
LOC: LAB 15:11
PROVIDERS: ATTEND Internal Medicine
DX: E11.8 Type 2 diabetes mellitus with unspecified complications (principal)

== ENCOUNTER → 2020-06-11 | Outpatient (CLI) | payer BC | END | disposition home or self-care (01) | LOC: RESCLI 01:51 | PROVIDERS: ATTEND Internal Medicine Nephrology | DX: E55.9 Vitamin D deficiency, unspecified (principal); E11.29 Type 2 diabetes mellitus with other diabetic kidney complication; I10 Essential (primary) hypertension; E78.5 Hyperlipidemia, unspecified; I48.0 Paroxysmal atrial fibrillation; R60.0 Localized edema; R80.9 Proteinuria, unspecified; Z79.4 Long term (current) use of insulin; Z79.899 Other long term (current) drug therapy ==

== ENCOUNTER → 2020-09-26 | Outpatient (CLI) | payer BC | END | disposition home or self-care (01) | LOC: RESCLI 01:18 | PROVIDERS: ATTEND Internal Medicine Nephrology | DX: E11.29 Type 2 diabetes mellitus with other diabetic kidney complication (principal); E55.9 Vitamin D deficiency, unspecified; I10 Essential (primary) hypertension; I48.0 Paroxysmal atrial fibrillation; E78.5 Hyperlipidemia, unspecified; R80.9 Proteinuria, unspecified; Z79.4 Long term (current) use of insulin; Z79.899 Other long term (current) drug therapy ==

== ENCOUNTER → 2020-09-27 | Outpatient (CLI) | payer BC ==
[2020-09-27 06:04] LABS: ALKALINE PHOSPHATASE 87 U/L (45-117); BUN 20 mg/dl (7-24); CHLORIDE 111 mmol/L (98-107); CHOLESTEROL 158 mg/dL (<200); LDL CHOLESTEROL 79 mg/dL (9-159); POTASSIUM 3.9 mmol/L (3.5-5.1); SGOT/AST 20 IU/L (3-35); SGPT/ALT 32 U/L (12-78); SODIUM 142 mmol/L (136-145); TOTAL PROTEIN 6.8 gm/dL (6.4-8.2); TRIGLYCERIDES 174 mg/dl (<150)
[2020-09-27 06:22] LABS: BASO # 0.1 10*3/uL (0.0-0.1); BASO % 0.8 % (0.0-1.0); EOS # 0.2 10*3/uL (0.0-0.4); EOS % 2.2 % (1.0-4.0); HEMATOCRIT 41.7 % (42.0-52.0); LYMPH # 1.8 10*3/uL (1.3-4.4); LYMPH % 23.5 % (27.0-41.0); MEAN CELL VOLUME 88.2 fl (80.0-94.0); MEAN CORPUSCULAR HGB 28.1 pg (27.0-31.0); MEAN CORPUSCULAR HGB CONC 31.9 g/dl (33.0-37.0); MEAN PLATELET VOLUME 10.4 fl (9.6-12.3); MONO # 0.7 10*3/uL (0.1-1.0); MONO % 8.3 % (3.0-9.0); NEUT # 5.1 10*3/uL (2.3-7.9); NEUT % 64.9 % (47.0-73.0); PLATELET COUNT AUTOMATED 206 10*3/uL (130-400); RED BLOOD COUNT 4.73 10*6/uL (4.50-5.90); RED CELL DISTRI WIDTH 13.1 % (0-14.5); WHITE BLOOD COUNT 7.8 10*3/uL (4.8-10.8)
== END | disposition home or self-care (01) ==
LOC: LAB 05:04
PROVIDERS: ATTEND Internal Medicine
DX: I10 Essential (primary) hypertension (principal); I48.0 Paroxysmal atrial fibrillation; E55.9 Vitamin D deficiency, unspecified; E78.5 Hyperlipidemia, unspecified

== ENCOUNTER → 2020-10-05 | Outpatient (CLI) | payer BC | END | disposition home or self-care (01) | LOC: RESCLI 02:00 | PROVIDERS: ATTEND Internal Medicine | DX: I10 Essential (primary) hypertension (principal); E11.8 Type 2 diabetes mellitus with unspecified complications; E66.9 Obesity, unspecified; I48.0 Paroxysmal atrial fibrillation; F51.01 Primary insomnia; E55.9 Vitamin D deficiency, unspecified; D22.9 Melanocytic nevi, unspecified; E11.29 Type 2 diabetes mellitus with other diabetic kidney complication; E11.65 Type 2 diabetes mellitus with hyperglycemia; E78.5 Hyperlipidemia, unspecified; Z79.4 Long term (current) use of insulin; Z12.11 Encounter for screening for malignant neoplasm of colon; Z79.899 Other long term (current) drug therapy; Z98.890 Other specified postprocedural states ==

== ENCOUNTER 2021-01-08 14:12 | Emergency (ER) | payer OTHER, BC ==
[~2021-01-08] VITALS: Ht 172.7 cm; Wt 113.4 kg
[2021-01-08 14:44] VITALS: BP 164/61
[2021-01-08] MEDS ORDERED: AUGMENTIN 875-875 MG PO (15:23)
== END 2021-01-08 16:20 | disposition home or self-care (01) ==
LOC: ED 14:12
DX: S61.212A Laceration without foreign body of right middle finger without damage to nail, initial encounter (principal); Z79.899 Other long term (current) drug therapy; Z79.2 Long term (current) use of antibiotics; Z79.4 Long term (current) use of insulin; Z98.890 Other specified postprocedural states; Z87.442 Personal history of urinary calculi; W26.8XXA Contact with other sharp object(s), not elsewhere classified, initial encounter; Y93.89 Activity, other specified; Y92.69 Other specified industrial and construction area as the place of occurrence of the external cause; Y99.0 Civilian activity done for income or pay

== ENCOUNTER → 2021-01-15 | Outpatient (CLI) | payer BC ==
[~2021-01-15] MED LIST changes: +AUGMENTIN 875-875 MG PO
== END | disposition home or self-care (01) ==
LOC: RESCLI 00:33
PROVIDERS: ATTEND Internal Medicine
DX: E11.29 Type 2 diabetes mellitus with other diabetic kidney complication (principal); R80.9 Proteinuria, unspecified; E78.5 Hyperlipidemia, unspecified; I48.0 Paroxysmal atrial fibrillation; I10 Essential (primary) hypertension; E55.9 Vitamin D deficiency, unspecified; R60.0 Localized edema; Z79.82 Long term (current) use of aspirin; Z79.899 Other long term (current) drug therapy

== ENCOUNTER → 2021-03-20 | Outpatient (CLI) | payer BC ==
[2021-03-20 06:19] LABS: BILIRUBIN Negative (Negative); BLOOD Negative (Negative); CLARITY Clear (Clear); COLOR Yellow (Yellow); GLUCOSE Negative (Negative); KETONE Negative (Negative); LEUKO ESTERASE Negative (Negative); NITRITE Negative (Negative); UROBILINOGEN 0.2 E.U./dl (0.0-1.0)
[2021-03-20 06:29] LABS: ALBUMIN 3.1 gm/dl (3.1-4.5); CHLORIDE 108 mmol/L (98-107); POTASSIUM 3.9 mmol/L (3.5-5.1); SODIUM 144 mmol/L (136-145)
[2021-03-20 06:35] LABS: ALKALINE PHOSPHATASE 87 U/L (45-117); BUN 21 mg/dl (7-24); CHOLESTEROL 153 mg/dL (<200); CREATININE 1.17 mg/dL (0.70-1.30); LDL CHOLESTEROL 72 mg/dL (9-159); SGOT/AST 19 IU/L (3-35); SGPT/ALT 33 U/L (12-78); TRIGLYCERIDES 126 mg/dl (<150)
== END | disposition home or self-care (01) ==
LOC: LAB 04:59
PROVIDERS: ATTEND Internal Medicine
DX: E78.5 Hyperlipidemia, unspecified (principal); E11.29 Type 2 diabetes mellitus with other diabetic kidney complication; E55.9 Vitamin D deficiency, unspecified

== ENCOUNTER → 2021-04-12 | Outpatient (CLI) | payer BC | END | disposition home or self-care (01) | LOC: RESCLI 04:34 | PROVIDERS: ATTEND Internal Medicine | DX: Z23 Encounter for immunization (principal); E11.29 Type 2 diabetes mellitus with other diabetic kidney complication; R80.9 Proteinuria, unspecified; E78.5 Hyperlipidemia, unspecified; I48.0 Paroxysmal atrial fibrillation; I10 Essential (primary) hypertension; E55.9 Vitamin D deficiency, unspecified; R60.0 Localized edema; Z12.11 Encounter for screening for malignant neoplasm of colon; Z79.899 Other long term (current) drug therapy; Z98.890 Other specified postprocedural states ==

== ENCOUNTER → 2021-05-24 | Outpatient (CLI) | payer BC | END | disposition home or self-care (01) | LOC: RESCLI 06:40 | PROVIDERS: ATTEND Internal Medicine | DX: R80.9 Proteinuria, unspecified (principal); I10 Essential (primary) hypertension; E11.40 Type 2 diabetes mellitus with diabetic neuropathy, unspecified; I48.0 Paroxysmal atrial fibrillation; R60.0 Localized edema; Z79.82 Long term (current) use of aspirin; Z79.899 Other long term (current) drug therapy; R05.3 Chronic cough ==

== ENCOUNTER → 2021-06-06 | Outpatient (CLI) | payer BC ==
[2021-06-06 09:01] LABS: BUN 20 mg/dl (7-24); CHLORIDE 105 mmol/L (98-107); CREATININE 1.31 mg/dL (0.70-1.30); POTASSIUM 4.3 mmol/L (3.5-5.1); SODIUM 141 mmol/L (136-145)
== END | disposition home or self-care (01) ==
LOC: LAB 08:19
PROVIDERS: Student in an Organized Health Care Education/Training Program; ATTEND Internal Medicine
DX: I10 Essential (primary) hypertension (principal)

== ENCOUNTER → 2021-06-07 | Outpatient (CLI) | payer BC | END | disposition home or self-care (01) | LOC: RESCLI 08:47 | PROVIDERS: ATTEND Internal Medicine | DX: E55.9 Vitamin D deficiency, unspecified (principal); E11.29 Type 2 diabetes mellitus with other diabetic kidney complication; E78.5 Hyperlipidemia, unspecified; I48.0 Paroxysmal atrial fibrillation; E11.8 Type 2 diabetes mellitus with unspecified complications; I10 Essential (primary) hypertension; J45.909 Unspecified asthma, uncomplicated; R60.0 Localized edema; Z79.82 Long term (current) use of aspirin; Z79.899 Other long term (current) drug therapy; Z98.890 Other specified postprocedural states ==

== ENCOUNTER → 2021-08-02 | Outpatient (CLI) | payer BC ==
[2021-08-02 05:31] LABS: BILIRUBIN Negative (Negative); BLOOD Negative (Negative); CLARITY Clear (Clear); COLOR Yellow (Yellow); GLUCOSE 1+ (Negative); KETONE Negative (Negative); LEUKO ESTERASE Negative (Negative); NITRITE Negative (Negative); SPECIFIC GRAVITY 1.015 (1.001-1.030)
[2021-08-02 05:43] LABS: RBC 0-2 rbc/hpf (0-2); WBC 0-2 wbc/hpf (0-5)
[2021-08-02 05:53] LABS: ALKALINE PHOSPHATASE 82 U/L (45-117); BUN 35 mg/dl (7-24); CHLORIDE 109 mmol/L (98-107); CHOLESTEROL 149 mg/dL (<200); CREATININE 1.42 mg/dL (0.70-1.30); LDL CHOLESTEROL 78 mg/dL (9-159); POTASSIUM 3.9 mmol/L (3.5-5.1); SGOT/AST 15 IU/L (3-35); SGPT/ALT 27 U/L (12-78); SODIUM 141 mmol/L (136-145); TOTAL PROTEIN 7.1 gm/dL (6.4-8.2); TRIGLYCERIDES 153 mg/dl (<150)
== END | disposition home or self-care (01) ==
LOC: LAB 04:59
PROVIDERS: ATTEND Internal Medicine
DX: E78.5 Hyperlipidemia, unspecified (principal); E55.9 Vitamin D deficiency, unspecified

== ENCOUNTER → 2021-10-11 | Outpatient (CLI) | payer BC | END | disposition home or self-care (01) | LOC: RESCLI 01:27 | PROVIDERS: ATTEND Internal Medicine | DX: E11.29 Type 2 diabetes mellitus with other diabetic kidney complication (principal); R80.9 Proteinuria, unspecified; E78.5 Hyperlipidemia, unspecified; I48.0 Paroxysmal atrial fibrillation; I10 Essential (primary) hypertension; E55.9 Vitamin D deficiency, unspecified; R60.0 Localized edema; Z12.11 Encounter for screening for malignant neoplasm of colon; Z79.899 Other long term (current) drug therapy; Z88.8 Allergy status to other drugs, medicaments and biological substances; Z79.82 Long term (current) use of aspirin ==

== ENCOUNTER → 2021-10-23 | Outpatient (CLI) | payer BC ==
[2021-10-23 09:11] LABS: BASO % 0.5 % (0.0-1.0); EOS # 0.2 10*3/uL (0.0-0.4); EOS % 2.6 % (1.0-4.0); HEMATOCRIT 38.1 % (42.0-52.0); LYMPH # 1.2 10*3/uL (1.3-4.4); MEAN CELL VOLUME 89.4 fl (80.0-94.0); MEAN CORPUSCULAR HGB 28.9 pg (27.0-31.0); MEAN CORPUSCULAR HGB CONC 32.3 g/dl (33.0-37.0); MEAN PLATELET VOLUME 10.1 fl (9.6-12.3); MONO # 0.6 10*3/uL (0.1-1.0); MONO % 8.1 % (3.0-9.0); NEUT # 5.2 10*3/uL (2.3-7.9); NEUT % 71.4 % (47.0-73.0); PLATELET COUNT AUTOMATED 197 10*3/uL (130-400); RED BLOOD COUNT 4.26 10*6/uL (4.50-5.90); RED CELL DISTRI WIDTH 12.9 % (0-14.5); WHITE BLOOD COUNT 7.3 10*3/uL (4.8-10.8)
[2021-10-23 09:18] LABS: BILIRUBIN Negative (Negative); BLOOD Negative (Negative); CLARITY Clear (Clear); COLOR Yellow (Yellow); GLUCOSE Negative (Negative); KETONE Negative (Negative); LEUKO ESTERASE Negative (Negative); NITRITE Negative (Negative); SPECIFIC GRAVITY 1.015 (1.001-1.030)
[2021-10-23 09:23] LABS: CREATININE 1.65 mg/dL (0.70-1.30); POTASSIUM 5.2 mmol/L (3.5-5.1)
[2021-10-23 09:26] LABS: URINE CREATININE RANDOM 72.5 mg/dL
[2021-10-23 10:29] LABS: VITAMIN D, 25-HYDROXY 39.7 ng/mL (30-100)
[2021-10-23 10:30] LABS: FERRITIN 176.9 ng/mL (22.0-322.0)
[2021-10-23 11:05] LABS: BACTERIA TRACE; WBC 0-2 wbc/hpf (0-5)
== END | disposition home or self-care (01) ==
LOC: US 07:30 → LAB 07:46
PROVIDERS: ATTEND Internal Medicine Nephrology
DX: N18.31 Chronic kidney disease, stage 3a (principal); N25.81 Secondary hyperparathyroidism of renal origin; D63.1 Anemia in chronic kidney disease

== ENCOUNTER → 2022-03-20 | Outpatient (CLI) | payer BC ==
[2022-03-20 07:52] LABS: BILIRUBIN Negative (Negative); BLOOD Negative (Negative); CLARITY Clear (Clear); COLOR Yellow (Yellow); GLUCOSE Negative (Negative); KETONE Negative (Negative); LEUKO ESTERASE Negative (Negative); NITRITE Negative (Negative); PH 5.5 (4.5-8.0); SPECIFIC GRAVITY 1.015 (1.001-1.030)
[2022-03-20 08:07] LABS: ALKALINE PHOSPHATASE 91 U/L (45-117); BUN 31 mg/dl (7-24); CHLORIDE 107 mmol/L (98-107); CHOLESTEROL 192 mg/dL (<200); CREATININE 1.66 mg/dL (0.70-1.30); LDL CHOLESTEROL 121 mg/dL (9-159); POTASSIUM 4.1 mmol/L (3.5-5.1); SGOT/AST 35 IU/L (3-35); SGPT/ALT 53 U/L (12-78); SODIUM 138 mmol/L (136-145); TOTAL PROTEIN 7.1 gm/dL (6.4-8.2); TRIGLYCERIDES 141 mg/dl (<150)
[2022-03-20 08:26] LABS: RBC 0-2 rbc/hpf (0-2); WBC 0-2 wbc/hpf (0-5)
== END | disposition home or self-care (01) ==
LOC: LAB 07:04
PROVIDERS: Internal Medicine; ATTEND Internal Medicine
DX: E11.29 Type 2 diabetes mellitus with other diabetic kidney complication (principal); E78.5 Hyperlipidemia, unspecified; I48.0 Paroxysmal atrial fibrillation; I10 Essential (primary) hypertension; E55.9 Vitamin D deficiency, unspecified; Z12.11 Encounter for screening for malignant neoplasm of colon; R60.0 Localized edema; R80.9 Proteinuria, unspecified; Z98.890 Other specified postprocedural states; Z82.49 Family history of ischemic heart disease and other diseases of the circulatory system; Z79.82 Long term (current) use of aspirin; Z79.01 Long term (current) use of anticoagulants; Z88.8 Allergy status to other drugs, medicaments and biological substances; Z79.899 Other long term (current) drug therapy

== ENCOUNTER → 2022-04-28 | Day surgery (SDC) | payer BC ==
[~2022-04-28] VITALS: Ht 172.7 cm; Wt 117.9 kg
[~2022-04-28] MED LIST changes: +HUMALOG 751 UNIT/0.0 SC
[2022-04-28 07:32] VITALS: BP 178/66
[2022-04-28 08:31] VITALS: BP 127/58
[2022-04-28 08:44] VITALS: BP 140/59
[2022-04-28 09:00] VITALS: BP 153/70
== END | disposition home or self-care (01) ==
LOC: SDC 04-24 11:00
PROVIDERS: ATTEND Surgery
DX: Z12.11 Encounter for screening for malignant neoplasm of colon (principal); D12.2 Benign neoplasm of ascending colon; K57.30 Diverticulosis of large intestine without perforation or abscess without bleeding; I10 Essential (primary) hypertension; M19.022 Primary osteoarthritis, left elbow; E11.40 Type 2 diabetes mellitus with diabetic neuropathy, unspecified; I48.91 Unspecified atrial fibrillation; E78.5 Hyperlipidemia, unspecified; Z79.01 Long term (current) use of anticoagulants; Z79.4 Long term (current) use of insulin; Z79.899 Other long term (current) drug therapy

== ENCOUNTER → 2022-07-10 | Outpatient (CLI) | payer BC ==
[2022-07-10 07:54] LABS: BILIRUBIN Negative (Negative); BLOOD Negative (Negative); CLARITY Clear (Clear); COLOR Yellow (Yellow); GLUCOSE 1+ (Negative); KETONE Negative (Negative); LEUKO ESTERASE 2+ (Negative); NITRITE Negative (Negative); SPECIFIC GRAVITY 1.015 (1.001-1.030)
[2022-07-10 08:04] LABS: POTASSIUM 4.3 mmol/L (3.4-5.1); TOTAL PROTEIN 6.9 gm/dL (6.0-8.0)
[2022-07-10 11:04] LABS: EPITHELIAL CELLS 0-2
[2022-07-10 11:05] LABS: BACTERIA TRACE; RBC 0-2 rbc/hpf (0-2); WBC 0-2 wbc/hpf (0-5)
== END | disposition home or self-care (01) ==
LOC: LAB 07:07
PROVIDERS: ATTEND Internal Medicine
DX: E11.29 Type 2 diabetes mellitus with other diabetic kidney complication (principal); N18.9 Chronic kidney disease, unspecified; E55.9 Vitamin D deficiency, unspecified; E78.5 Hyperlipidemia, unspecified

== ENCOUNTER → 2022-07-15 | Outpatient (CLI) | payer BC | END | disposition home or self-care (01) | LOC: RESCLI 02:15 | PROVIDERS: ATTEND Internal Medicine | DX: E11.29 Type 2 diabetes mellitus with other diabetic kidney complication (principal); E78.5 Hyperlipidemia, unspecified; I10 Essential (primary) hypertension; E55.9 Vitamin D deficiency, unspecified; R60.9 Edema, unspecified; F10.90 Alcohol use, unspecified, uncomplicated; Z98.890 Other specified postprocedural states; Z88.8 Allergy status to other drugs, medicaments and biological substances; Z79.82 Long term (current) use of aspirin; Z79.01 Long term (current) use of anticoagulants; Z79.899 Other long term (current) drug therapy ==

== ENCOUNTER → 2022-10-16 | Outpatient (CLI) | payer BC | END | disposition home or self-care (01) | LOC: RESCLI 00:40 | PROVIDERS: ATTEND Internal Medicine | DX: E11.29 Type 2 diabetes mellitus with other diabetic kidney complication (principal); E78.5 Hyperlipidemia, unspecified; I48.0 Paroxysmal atrial fibrillation; I10 Essential (primary) hypertension; E55.9 Vitamin D deficiency, unspecified; R60.9 Edema, unspecified; Z79.4 Long term (current) use of insulin; Z79.01 Long term (current) use of anticoagulants; Z79.899 Other long term (current) drug therapy; Z98.890 Other specified postprocedural states; Z82.49 Family history of ischemic heart disease and other diseases of the circulatory system; Z84.89 Family history of other specified conditions; Z88.8 Allergy status to other drugs, medicaments and biological substances ==

== ENCOUNTER 2022-10-25 15:27 | Emergency (ER) | payer BC ==
[~2022-10-25] VITALS: Ht 205.7 cm; Wt 118.8 kg
[2022-10-25 15:45] VITALS: BP 142/44
[2022-10-25] MEDS ORDERED: JARDIANCE25 MG PO (16:04)
[2022-10-25 17:51] LABS: HEMATOCRIT 41.4 % (42.0-52.0); MEAN CELL VOLUME 88.3 fl (80.0-94.0); MEAN CORPUSCULAR HGB 29.2 pg (27.0-31.0); MEAN CORPUSCULAR HGB CONC 33.1 g/dl (33.0-37.0); MEAN PLATELET VOLUME 10.4 fl (9.6-12.3); PLATELET COUNT AUTOMATED 253 10*3/uL (130-400); RED BLOOD COUNT 4.69 10*6/uL (4.50-5.90); RED CELL DISTRI WIDTH 13.2 % (0-14.5); WHITE BLOOD COUNT 24.8 10*3/uL (4.8-10.8)
[2022-10-25 17:57] LABS: MANUAL DIFF REFLEX YES
[2022-10-25 18:08] LABS: POTASSIUM 3.8 mmol/L (3.4-5.1)
[2022-10-25 18:10] LABS: PLATELET SUFFICIENCY NORMAL (NORMAL); TOTAL CELLS COUNTED 100 #CELLS
[2022-10-25 18:21] LABS: BILIRUBIN Negative (Negative); BLOOD Negative (Negative); CLARITY Clear (Clear); COLOR Yellow (Yellow); GLUCOSE 3+ (Negative); KETONE Negative (Negative); LEUKO ESTERASE Negative (Negative); NITRITE Negative (Negative); PH 5.5 (4.5-8.0); SPECIFIC GRAVITY 1.015 (1.001-1.030)
[2022-10-25 18:34] LABS: MUCOUS TRACE; WBC 0-2 wbc/hpf (0-5)
[2022-10-25] MEDS ORDERED: METRONIDAZOLE500 M1 PO ×2 (22:02)
[2022-10-25] MEDS ORDERED: CIPRO500 MG PO ×2 (22:02)
[2022-10-25] MEDS ORDERED: ONDANSETRON4 MG SL ×2 (22:02)
[2022-10-28] MEDS ORDERED: NORVASC5 MG PO (09:28)
[2022-10-28] MEDS ORDERED: ZESTRIL40 MG PO (09:28)
[2022-10-28] MEDS ORDERED: ALDACTONE25 MG PO (09:28)
[2022-10-28] MEDS ORDERED: BYETTA10 MCG/0.1 SC (09:29)
[2022-10-28] MEDS ORDERED: AMARYL1 M1 PO (09:30)
[2022-10-28] MEDS ORDERED: METOPROLOL SUCC25 M2 PO (10:32)
== END 2022-10-25 22:18 | disposition home or self-care (01) ==
LOC: ED 15:27
PROVIDERS: Student in an Organized Health Care Education/Training Program
DX: K80.20 Calculus of gallbladder without cholecystitis without obstruction (principal); N17.9 Acute kidney failure, unspecified; E87.20 Acidosis, unspecified; I12.9 Hypertensive chronic kidney disease with stage 1 through stage 4 chronic kidney disease, or unspecified chronic kidney disease; E11.22 Type 2 diabetes mellitus with diabetic chronic kidney disease; N18.9 Chronic kidney disease, unspecified; M19.90 Unspecified osteoarthritis, unspecified site; D72.829 Elevated white blood cell count, unspecified; Z88.8 Allergy status to other drugs, medicaments and biological substances; Z98.890 Other specified postprocedural states

== ENCOUNTER → 2022-12-15 | Outpatient (CLI) | payer BC ==
[~2022-12-15] MED LIST changes: +ALDACTONE25 MG PO; +AMARYL1 M1 PO; +BYETTA10 MCG/0.1 SC; +CIPRO500 MG PO; +JARDIANCE25 MG PO; +METOPROLOL SUCC25 M2 PO; +METRONIDAZOLE500 M1 PO; +NORVASC5 MG PO; +ONDANSETRON4 MG SL; +VIBRA-TAB100 MG PO; +ZESTRIL40 MG PO
== END | disposition home or self-care (01) ==
LOC: CARD 00:03
PROVIDERS: ATTEND Internal Medicine
DX: I51.7 Cardiomegaly (principal); R60.9 Edema, unspecified

== ENCOUNTER → 2023-03-17 | Outpatient (CLI) | payer BC | END | disposition home or self-care (01) | LOC: RESCLI 15:15 | PROVIDERS: ATTEND Emergency Medicine | DX: E55.9 Vitamin D deficiency, unspecified (principal); E11.29 Type 2 diabetes mellitus with other diabetic kidney complication; I10 Essential (primary) hypertension; I48.0 Paroxysmal atrial fibrillation; E78.5 Hyperlipidemia, unspecified; G62.9 Polyneuropathy, unspecified; G25.81 Restless legs syndrome; R60.9 Edema, unspecified; Z79.899 Other long term (current) drug therapy; Z88.8 Allergy status to other drugs, medicaments and biological substances; Z82.49 Family history of ischemic heart disease and other diseases of the circulatory system ==

== ENCOUNTER → 2023-07-21 | Outpatient (CLI) | payer BC ==
[~2023-07-21] MED LIST changes: +CARBIDOPA-LEVO1 EAC6 PO; +NEURONTIN300 MG PO; +POTASSIUM CHLO10 ME5 PO; +PRAVASTATIN SOD40 MG PO; +VIBRAMYCIN100 MG PO; +VICTOZA 3-0.6 MG/0.1 SC
[2023-07-21 07:33] LABS: BILIRUBIN Negative (Negative); BLOOD Negative (Negative); CLARITY Clear (Clear); COLOR Yellow (Yellow); GLUCOSE 3+ (Negative); KETONE Negative (Negative); LEUKO ESTERASE Negative (Negative); NITRITE Negative (Negative); PH 5.5 (4.5-8.0); UROBILINOGEN 0.2 E.U./dl (0.0-1.0)
[2023-07-21 07:47] LABS: BACTERIA TRACE
[2023-07-21 08:02] LABS: ALKALINE PHOSPHATASE 84 U/L (46-116); BUN 34 mg/dl (9-23); CHLORIDE 104 mmol/L (98-107); CHOLESTEROL 139 mg/dL (<200); LDL CHOLESTEROL 72 mg/dL (9-159); POTASSIUM 4.5 mmol/L (3.4-5.1); TRIGLYCERIDES 134 mg/dl (<150)
[2023-07-21 08:07] LABS: SGPT/ALT < 7 U/L (5-49)
== END | disposition home or self-care (01) ==
LOC: LAB 07:14
PROVIDERS: ATTEND Internal Medicine
DX: E11.29 Type 2 diabetes mellitus with other diabetic kidney complication (principal); E55.9 Vitamin D deficiency, unspecified; E78.5 Hyperlipidemia, unspecified

== ENCOUNTER → 2024-01-01 | Outpatient (CLI) | payer BC ==
[2024-01-01 08:26] LABS: BILIRUBIN Negative (Negative); BLOOD Negative (Negative); CLARITY Clear (Clear); COLOR Yellow (Yellow); GLUCOSE 3+ (Negative); KETONE Negative (Negative); LEUKO ESTERASE Negative (Negative); NITRITE Negative (Negative); SPECIFIC GRAVITY 1.025 (1.001-1.030)
[2024-01-01 08:51] LABS: POTASSIUM 4.1 mmol/L (3.4-5.1); TOTAL PROTEIN 6.7 gm/dL (6.0-8.0)
[2024-01-01 09:02] LABS: WBC 0-2 wbc/hpf (0-5)
[2024-01-01 09:03] LABS: RBC 0-2 rbc/hpf (0-2)
== END | disposition home or self-care (01) ==
LOC: LAB 07:02
PROVIDERS: ATTEND Internal Medicine
DX: E11.29 Type 2 diabetes mellitus with other diabetic kidney complication (principal); E55.9 Vitamin D deficiency, unspecified; E78.5 Hyperlipidemia, unspecified

== ENCOUNTER → 2024-04-09 | Outpatient (CLI) | payer BC ==
[2024-04-09 09:14] LABS: BILIRUBIN Negative (Negative); BLOOD Trace-Intact (Negative); CLARITY Clear (Clear); COLOR Yellow (Yellow); GLUCOSE 3+ (Negative); KETONE Negative (Negative); LEUKO ESTERASE Negative (Negative); NITRITE Negative (Negative); PH 5.5 (4.5-8.0); SPECIFIC GRAVITY 1.025 (1.001-1.030); UROBILINOGEN 0.2 E.U./dl (0.0-1.0)
[2024-04-09 09:26] LABS: BACTERIA TRACE
[2024-04-09 09:34] LABS: BUN 25 mg/dl (9-23); CHLORIDE 107 mmol/L (98-107)
== END | disposition home or self-care (01) ==
LOC: LAB 08:54
PROVIDERS: ATTEND Internal Medicine
DX: E11.29 Type 2 diabetes mellitus with other diabetic kidney complication (principal); E55.9 Vitamin D deficiency, unspecified

== ENCOUNTER → 2024-07-01 | Outpatient (CLI) | payer BC ==
[~2024-07-01] MED LIST changes: +AUGMENTIN 500500 M1 PO
== END | disposition home or self-care (01) ==
LOC: WOUNDCARE 04:55
PROVIDERS: ATTEND Nurse Practitioner Family
DX: E11.621 Type 2 diabetes mellitus with foot ulcer (principal); L97.521 Non-pressure chronic ulcer of other part of left foot limited to breakdown of skin; L97.511 Non-pressure chronic ulcer of other part of right foot limited to breakdown of skin; L97.421 Non-pressure chronic ulcer of left heel and midfoot limited to breakdown of skin; E11.622 Type 2 diabetes mellitus with other skin ulcer; L97.822 Non-pressure chronic ulcer of other part of left lower leg with fat layer exposed; L97.811 Non-pressure chronic ulcer of other part of right lower leg limited to breakdown of skin; I87.2 Venous insufficiency (chronic) (peripheral); E11.51 Type 2 diabetes mellitus with diabetic peripheral angiopathy without gangrene; E11.40 Type 2 diabetes mellitus with diabetic neuropathy, unspecified; S91.302A Unspecified open wound, left foot, initial encounter; S91.301A Unspecified open wound, right foot, initial encounter; E11.22 Type 2 diabetes mellitus with diabetic chronic kidney disease; I13.0 Hypertensive heart and chronic kidney disease with heart failure and stage 1 through stage 4 chronic kidney disease, or unspecified chronic kidney disease; N18.30 Chronic kidney disease, stage 3 unspecified; I50.32 Chronic diastolic (congestive) heart failure; J45.909 Unspecified asthma, uncomplicated; I48.91 Unspecified atrial fibrillation; E78.5 Hyperlipidemia, unspecified; R60.0 Localized edema; Z79.4 Long term (current) use of insulin; Z98.890 Other specified postprocedural states; Z79.899 Other long term (current) drug therapy; X58.XXXA Exposure to other specified factors, initial encounter; Y93.89 Activity, other specified; Y92.89 Other specified places as the place of occurrence of the external cause; Y99.8 Other external cause status

== ENCOUNTER → 2024-07-08 | Outpatient (CLI) | payer BC | END | disposition home or self-care (01) | LOC: WOUNDCARE 00:23 | PROVIDERS: ATTEND Nurse Practitioner Family | DX: E11.621 Type 2 diabetes mellitus with foot ulcer (principal); L97.522 Non-pressure chronic ulcer of other part of left foot with fat layer exposed; L97.512 Non-pressure chronic ulcer of other part of right foot with fat layer exposed; L97.421 Non-pressure chronic ulcer of left heel and midfoot limited to breakdown of skin; E11.622 Type 2 diabetes mellitus with other skin ulcer; L97.822 Non-pressure chronic ulcer of other part of left lower leg with fat layer exposed; L97.811 Non-pressure chronic ulcer of other part of right lower leg limited to breakdown of skin; S91.301D Unspecified open wound, right foot, subsequent encounter; S91.302D Unspecified open wound, left foot, subsequent encounter; R60.0 Localized edema; I87.2 Venous insufficiency (chronic) (peripheral); I11.0 Hypertensive heart disease with heart failure; I50.32 Chronic diastolic (congestive) heart failure; E11.51 Type 2 diabetes mellitus with diabetic peripheral angiopathy without gangrene; E11.40 Type 2 diabetes mellitus with diabetic neuropathy, unspecified; I48.91 Unspecified atrial fibrillation; J45.909 Unspecified asthma, uncomplicated; J32.9 Chronic sinusitis, unspecified; Z87.442 Personal history of urinary calculi; Z98.890 Other specified postprocedural states; Z79.4 Long term (current) use of insulin; Z79.899 Other long term (current) drug therapy; X58.XXXD Exposure to other specified factors, subsequent encounter ==

== ENCOUNTER → 2024-07-12 | Outpatient (CLI) | payer BC | END | disposition home or self-care (01) | LOC: WOUNDCARE 01:59 | PROVIDERS: ATTEND Nurse Practitioner Family | DX: E11.621 Type 2 diabetes mellitus with foot ulcer (principal); L97.512 Non-pressure chronic ulcer of other part of right foot with fat layer exposed; L97.522 Non-pressure chronic ulcer of other part of left foot with fat layer exposed; L97.422 Non-pressure chronic ulcer of left heel and midfoot with fat layer exposed; E11.622 Type 2 diabetes mellitus with other skin ulcer; L97.812 Non-pressure chronic ulcer of other part of right lower leg with fat layer exposed; I87.2 Venous insufficiency (chronic) (peripheral); S91.301D Unspecified open wound, right foot, subsequent encounter; S91.302D Unspecified open wound, left foot, subsequent encounter; R60.0 Localized edema; E11.51 Type 2 diabetes mellitus with diabetic peripheral angiopathy without gangrene; E11.40 Type 2 diabetes mellitus with diabetic neuropathy, unspecified; E11.22 Type 2 diabetes mellitus with diabetic chronic kidney disease; I13.0 Hypertensive heart and chronic kidney disease with heart failure and stage 1 through stage 4 chronic kidney disease, or unspecified chronic kidney disease; N18.30 Chronic kidney disease, stage 3 unspecified; I50.32 Chronic diastolic (congestive) heart failure; J45.909 Unspecified asthma, uncomplicated; I48.91 Unspecified atrial fibrillation; E78.5 Hyperlipidemia, unspecified; J32.9 Chronic sinusitis, unspecified; Z98.890 Other specified postprocedural states; Z79.4 Long term (current) use of insulin; Z79.899 Other long term (current) drug therapy; X58.XXXD Exposure to other specified factors, subsequent encounter ==

== ENCOUNTER → 2024-07-15 | Outpatient (CLI) | payer BC | END | disposition home or self-care (01) | LOC: WOUNDCARE 01:47 | PROVIDERS: ATTEND Nurse Practitioner Family | DX: E11.621 Type 2 diabetes mellitus with foot ulcer (principal); L97.422 Non-pressure chronic ulcer of left heel and midfoot with fat layer exposed; L97.512 Non-pressure chronic ulcer of other part of right foot with fat layer exposed; L97.521 Non-pressure chronic ulcer of other part of left foot limited to breakdown of skin; E11.622 Type 2 diabetes mellitus with other skin ulcer; L97.812 Non-pressure chronic ulcer of other part of right lower leg with fat layer exposed; L97.821 Non-pressure chronic ulcer of other part of left lower leg limited to breakdown of skin; R60.9 Edema, unspecified; I48.91 Unspecified atrial fibrillation; I11.0 Hypertensive heart disease with heart failure; I50.9 Heart failure, unspecified; Z98.890 Other specified postprocedural states; Z79.4 Long term (current) use of insulin; Z79.899 Other long term (current) drug therapy ==

== ENCOUNTER → 2024-07-16 | Outpatient (CLI) | payer BC ==
[2024-07-17 10:06] LABS: DHEA SULFATE 72.8 ug/dL (30.9-295.6)
[2024-07-19 00:06] LABS: CREATININE, RANDOM URINE 71.6 mg/dL (Not Estab.)
== END | disposition home or self-care (01) ==
LOC: LAB 02:18
PROVIDERS: ATTEND Internal Medicine
DX: E27.8 Other specified disorders of adrenal gland (principal)

== ENCOUNTER → 2024-07-22 | Outpatient (CLI) | payer BC | END | disposition home or self-care (01) | LOC: WOUNDCARE 00:48 | PROVIDERS: ATTEND Nurse Practitioner Family | DX: E11.621 Type 2 diabetes mellitus with foot ulcer (principal); L97.522 Non-pressure chronic ulcer of other part of left foot with fat layer exposed; L97.422 Non-pressure chronic ulcer of left heel and midfoot with fat layer exposed; L97.512 Non-pressure chronic ulcer of other part of right foot with fat layer exposed; S91.302D Unspecified open wound, left foot, subsequent encounter; S91.301D Unspecified open wound, right foot, subsequent encounter; I87.2 Venous insufficiency (chronic) (peripheral); R60.0 Localized edema; I11.0 Hypertensive heart disease with heart failure; I50.32 Chronic diastolic (congestive) heart failure; I48.91 Unspecified atrial fibrillation; E11.40 Type 2 diabetes mellitus with diabetic neuropathy, unspecified; E11.51 Type 2 diabetes mellitus with diabetic peripheral angiopathy without gangrene; J45.909 Unspecified asthma, uncomplicated; Z79.4 Long term (current) use of insulin; Z79.899 Other long term (current) drug therapy; Z98.890 Other specified postprocedural states; X58.XXXD Exposure to other specified factors, subsequent encounter ==

== ENCOUNTER → 2024-07-26 | Outpatient (CLI) | payer BC | END | disposition home or self-care (01) | LOC: WOUNDCARE 02:17 | PROVIDERS: ATTEND Nurse Practitioner Family | DX: E11.621 Type 2 diabetes mellitus with foot ulcer (principal); L97.522 Non-pressure chronic ulcer of other part of left foot with fat layer exposed; L97.422 Non-pressure chronic ulcer of left heel and midfoot with fat layer exposed; L97.512 Non-pressure chronic ulcer of other part of right foot with fat layer exposed; S91.302D Unspecified open wound, left foot, subsequent encounter; S91.301D Unspecified open wound, right foot, subsequent encounter; I87.2 Venous insufficiency (chronic) (peripheral); R60.0 Localized edema; E11.22 Type 2 diabetes mellitus with diabetic chronic kidney disease; N18.30 Chronic kidney disease, stage 3 unspecified; I13.0 Hypertensive heart and chronic kidney disease with heart failure and stage 1 through stage 4 chronic kidney disease, or unspecified chronic kidney disease; I50.32 Chronic diastolic (congestive) heart failure; E11.40 Type 2 diabetes mellitus with diabetic neuropathy, unspecified; E11.51 Type 2 diabetes mellitus with diabetic peripheral angiopathy without gangrene; J45.909 Unspecified asthma, uncomplicated; I48.91 Unspecified atrial fibrillation; Z79.4 Long term (current) use of insulin; Z79.899 Other long term (current) drug therapy; Z98.890 Other specified postprocedural states; X58.XXXD Exposure to other specified factors, subsequent encounter ==

== ENCOUNTER → 2024-08-02 | Outpatient (CLI) | payer BC | END | disposition home or self-care (01) | LOC: WOUNDCARE 02:12 | PROVIDERS: ATTEND Nurse Practitioner Family | DX: E11.621 Type 2 diabetes mellitus with foot ulcer (principal); L97.522 Non-pressure chronic ulcer of other part of left foot with fat layer exposed; L97.512 Non-pressure chronic ulcer of other part of right foot with fat layer exposed; I87.2 Venous insufficiency (chronic) (peripheral); L84 Corns and callosities; R60.0 Localized edema; S91.301D Unspecified open wound, right foot, subsequent encounter; S91.302D Unspecified open wound, left foot, subsequent encounter; E11.51 Type 2 diabetes mellitus with diabetic peripheral angiopathy without gangrene; E11.40 Type 2 diabetes mellitus with diabetic neuropathy, unspecified; I11.0 Hypertensive heart disease with heart failure; I50.32 Chronic diastolic (congestive) heart failure; I48.91 Unspecified atrial fibrillation; J45.909 Unspecified asthma, uncomplicated; Z98.890 Other specified postprocedural states; Z79.4 Long term (current) use of insulin; Z79.899 Other long term (current) drug therapy; X58.XXXD Exposure to other specified factors, subsequent encounter ==

== ENCOUNTER → 2024-08-16 | Outpatient (CLI) | payer BC | END | disposition home or self-care (01) | LOC: WOUNDCARE 03:42 | PROVIDERS: ATTEND Nurse Practitioner Family | DX: E11.621 Type 2 diabetes mellitus with foot ulcer (principal); L97.522 Non-pressure chronic ulcer of other part of left foot with fat layer exposed; L97.512 Non-pressure chronic ulcer of other part of right foot with fat layer exposed; S91.301D Unspecified open wound, right foot, subsequent encounter; S91.302D Unspecified open wound, left foot, subsequent encounter; I87.2 Venous insufficiency (chronic) (peripheral); R60.0 Localized edema; E11.40 Type 2 diabetes mellitus with diabetic neuropathy, unspecified; E11.51 Type 2 diabetes mellitus with diabetic peripheral angiopathy without gangrene; I11.0 Hypertensive heart disease with heart failure; I50.9 Heart failure, unspecified; I48.91 Unspecified atrial fibrillation; Z98.890 Other specified postprocedural states; Z79.4 Long term (current) use of insulin; Z79.899 Other long term (current) drug therapy ==

== ENCOUNTER → 2024-08-23 | Outpatient (CLI) | payer BC | END | disposition home or self-care (01) | LOC: WOUNDCARE 02:30 | PROVIDERS: ATTEND Nurse Practitioner Family | DX: E11.621 Type 2 diabetes mellitus with foot ulcer (principal); L97.522 Non-pressure chronic ulcer of other part of left foot with fat layer exposed; I87.2 Venous insufficiency (chronic) (peripheral); S91.301D Unspecified open wound, right foot, subsequent encounter; S91.302D Unspecified open wound, left foot, subsequent encounter; E11.51 Type 2 diabetes mellitus with diabetic peripheral angiopathy without gangrene; E11.40 Type 2 diabetes mellitus with diabetic neuropathy, unspecified; I13.0 Hypertensive heart and chronic kidney disease with heart failure and stage 1 through stage 4 chronic kidney disease, or unspecified chronic kidney disease; E11.22 Type 2 diabetes mellitus with diabetic chronic kidney disease; N18.30 Chronic kidney disease, stage 3 unspecified; I50.32 Chronic diastolic (congestive) heart failure; I48.91 Unspecified atrial fibrillation; I10 Essential (primary) hypertension; E78.5 Hyperlipidemia, unspecified; J45.909 Unspecified asthma, uncomplicated; R60.0 Localized edema; Z79.4 Long term (current) use of insulin; Z98.890 Other specified postprocedural states; Z79.899 Other long term (current) drug therapy; X58.XXXD Exposure to other specified factors, subsequent encounter ==

== ENCOUNTER → 2024-08-31 | Outpatient (CLI) | payer BC | END | disposition home or self-care (01) | LOC: WOUNDCARE 02:31 | PROVIDERS: ATTEND Nurse Practitioner Family | DX: E11.621 Type 2 diabetes mellitus with foot ulcer (principal); L97.522 Non-pressure chronic ulcer of other part of left foot with fat layer exposed; I87.2 Venous insufficiency (chronic) (peripheral); S91.301D Unspecified open wound, right foot, subsequent encounter; S91.302D Unspecified open wound, left foot, subsequent encounter; E11.51 Type 2 diabetes mellitus with diabetic peripheral angiopathy without gangrene; E11.40 Type 2 diabetes mellitus with diabetic neuropathy, unspecified; I13.0 Hypertensive heart and chronic kidney disease with heart failure and stage 1 through stage 4 chronic kidney disease, or unspecified chronic kidney disease; E11.22 Type 2 diabetes mellitus with diabetic chronic kidney disease; N18.30 Chronic kidney disease, stage 3 unspecified; I50.32 Chronic diastolic (congestive) heart failure; I48.91 Unspecified atrial fibrillation; E78.5 Hyperlipidemia, unspecified; R60.0 Localized edema; J45.909 Unspecified asthma, uncomplicated; Z98.890 Other specified postprocedural states; Z79.4 Long term (current) use of insulin; Z79.899 Other long term (current) drug therapy; X58.XXXD Exposure to other specified factors, subsequent encounter ==

== ENCOUNTER → 2024-09-06 | Outpatient (CLI) | payer BC | END | disposition home or self-care (01) | LOC: WOUNDCARE 03:00 | PROVIDERS: ATTEND Nurse Practitioner Family | DX: E11.621 Type 2 diabetes mellitus with foot ulcer (principal); L97.522 Non-pressure chronic ulcer of other part of left foot with fat layer exposed; I87.2 Venous insufficiency (chronic) (peripheral); R60.0 Localized edema; S91.301D Unspecified open wound, right foot, subsequent encounter; S91.302D Unspecified open wound, left foot, subsequent encounter; E11.51 Type 2 diabetes mellitus with diabetic peripheral angiopathy without gangrene; E11.40 Type 2 diabetes mellitus with diabetic neuropathy, unspecified; E11.22 Type 2 diabetes mellitus with diabetic chronic kidney disease; I13.0 Hypertensive heart and chronic kidney disease with heart failure and stage 1 through stage 4 chronic kidney disease, or unspecified chronic kidney disease; N18.30 Chronic kidney disease, stage 3 unspecified; I50.32 Chronic diastolic (congestive) heart failure; J45.909 Unspecified asthma, uncomplicated; I48.91 Unspecified atrial fibrillation; E78.5 Hyperlipidemia, unspecified; Z98.890 Other specified postprocedural states; Z79.4 Long term (current) use of insulin; Z79.899 Other long term (current) drug therapy; X58.XXXD Exposure to other specified factors, subsequent encounter ==

== ENCOUNTER → 2024-09-13 | Outpatient (CLI) | payer BC | END | disposition home or self-care (01) | LOC: WOUNDCARE 02:12 | PROVIDERS: ATTEND Nurse Practitioner Family | DX: E11.621 Type 2 diabetes mellitus with foot ulcer (principal); L97.522 Non-pressure chronic ulcer of other part of left foot with fat layer exposed; I87.2 Venous insufficiency (chronic) (peripheral); R60.0 Localized edema; S91.301D Unspecified open wound, right foot, subsequent encounter; S91.302D Unspecified open wound, left foot, subsequent encounter; E11.51 Type 2 diabetes mellitus with diabetic peripheral angiopathy without gangrene; E11.40 Type 2 diabetes mellitus with diabetic neuropathy, unspecified; E11.22 Type 2 diabetes mellitus with diabetic chronic kidney disease; I13.0 Hypertensive heart and chronic kidney disease with heart failure and stage 1 through stage 4 chronic kidney disease, or unspecified chronic kidney disease; N18.30 Chronic kidney disease, stage 3 unspecified; I50.32 Chronic diastolic (congestive) heart failure; J45.909 Unspecified asthma, uncomplicated; I48.91 Unspecified atrial fibrillation; E78.5 Hyperlipidemia, unspecified; Z98.890 Other specified postprocedural states; Z79.4 Long term (current) use of insulin; Z79.899 Other long term (current) drug therapy; X58.XXXD Exposure to other specified factors, subsequent encounter ==

== ENCOUNTER → 2024-09-20 | Outpatient (CLI) | payer BC | END | disposition home or self-care (01) | LOC: WOUNDCARE 02:28 | PROVIDERS: ATTEND Nurse Practitioner Family | DX: E11.621 Type 2 diabetes mellitus with foot ulcer (principal); L97.522 Non-pressure chronic ulcer of other part of left foot with fat layer exposed; I87.2 Venous insufficiency (chronic) (peripheral); S91.301D Unspecified open wound, right foot, subsequent encounter; S91.302D Unspecified open wound, left foot, subsequent encounter; E11.51 Type 2 diabetes mellitus with diabetic peripheral angiopathy without gangrene; E11.40 Type 2 diabetes mellitus with diabetic neuropathy, unspecified; E11.22 Type 2 diabetes mellitus with diabetic chronic kidney disease; I13.0 Hypertensive heart and chronic kidney disease with heart failure and stage 1 through stage 4 chronic kidney disease, or unspecified chronic kidney disease; N18.30 Chronic kidney disease, stage 3 unspecified; I50.32 Chronic diastolic (congestive) heart failure; J45.909 Unspecified asthma, uncomplicated; I48.91 Unspecified atrial fibrillation; E78.5 Hyperlipidemia, unspecified; Z98.890 Other specified postprocedural states; Z79.4 Long term (current) use of insulin; Z79.899 Other long term (current) drug therapy; X58.XXXD Exposure to other specified factors, subsequent encounter ==

== ENCOUNTER → 2024-09-27 | Outpatient (CLI) | payer BC | END | disposition home or self-care (01) | LOC: WOUNDCARE 02:54 | PROVIDERS: ATTEND Nurse Practitioner Family | DX: E11.621 Type 2 diabetes mellitus with foot ulcer (principal); L97.822 Non-pressure chronic ulcer of other part of left lower leg with fat layer exposed; I87.2 Venous insufficiency (chronic) (peripheral); S91.301D Unspecified open wound, right foot, subsequent encounter; S91.302D Unspecified open wound, left foot, subsequent encounter; I13.0 Hypertensive heart and chronic kidney disease with heart failure and stage 1 through stage 4 chronic kidney disease, or unspecified chronic kidney disease; E11.22 Type 2 diabetes mellitus with diabetic chronic kidney disease; N18.30 Chronic kidney disease, stage 3 unspecified; I50.32 Chronic diastolic (congestive) heart failure; E11.51 Type 2 diabetes mellitus with diabetic peripheral angiopathy without gangrene; E11.40 Type 2 diabetes mellitus with diabetic neuropathy, unspecified; E78.5 Hyperlipidemia, unspecified; I48.91 Unspecified atrial fibrillation; J45.909 Unspecified asthma, uncomplicated; R60.0 Localized edema; Z79.4 Long term (current) use of insulin; Z98.890 Other specified postprocedural states; Z79.899 Other long term (current) drug therapy; X58.XXXD Exposure to other specified factors, subsequent encounter ==

== ENCOUNTER → 2024-10-05 | Outpatient (CLI) | payer BC | END | disposition home or self-care (01) | LOC: WOUNDCARE 15:10 | PROVIDERS: ATTEND Nurse Practitioner Family | DX: E11.621 Type 2 diabetes mellitus with foot ulcer (principal); L97.522 Non-pressure chronic ulcer of other part of left foot with fat layer exposed; I87.2 Venous insufficiency (chronic) (peripheral); S91.301D Unspecified open wound, right foot, subsequent encounter; S91.302D Unspecified open wound, left foot, subsequent encounter; R60.0 Localized edema; E11.51 Type 2 diabetes mellitus with diabetic peripheral angiopathy without gangrene; E11.40 Type 2 diabetes mellitus with diabetic neuropathy, unspecified; E11.22 Type 2 diabetes mellitus with diabetic chronic kidney disease; I13.0 Hypertensive heart and chronic kidney disease with heart failure and stage 1 through stage 4 chronic kidney disease, or unspecified chronic kidney disease; N18.30 Chronic kidney disease, stage 3 unspecified; I50.32 Chronic diastolic (congestive) heart failure; J45.909 Unspecified asthma, uncomplicated; I48.91 Unspecified atrial fibrillation; E78.5 Hyperlipidemia, unspecified; Z98.890 Other specified postprocedural states; Z79.4 Long term (current) use of insulin; Z79.899 Other long term (current) drug therapy; X58.XXXD Exposure to other specified factors, subsequent encounter ==

== ENCOUNTER → 2024-10-11 | Outpatient (CLI) | payer BC | END | disposition home or self-care (01) | LOC: WOUNDCARE 03:13 | PROVIDERS: ATTEND Nurse Practitioner Family | DX: E11.621 Type 2 diabetes mellitus with foot ulcer (principal); L97.522 Non-pressure chronic ulcer of other part of left foot with fat layer exposed; I87.2 Venous insufficiency (chronic) (peripheral); S91.301D Unspecified open wound, right foot, subsequent encounter; S91.302D Unspecified open wound, left foot, subsequent encounter; E11.51 Type 2 diabetes mellitus with diabetic peripheral angiopathy without gangrene; I13.10 Hypertensive heart and chronic kidney disease without heart failure, with stage 1 through stage 4 chronic kidney disease, or unspecified chronic kidney disease; E11.22 Type 2 diabetes mellitus with diabetic chronic kidney disease; I50.32 Chronic diastolic (congestive) heart failure; E11.40 Type 2 diabetes mellitus with diabetic neuropathy, unspecified; R60.0 Localized edema; E78.5 Hyperlipidemia, unspecified; I48.91 Unspecified atrial fibrillation; J45.909 Unspecified asthma, uncomplicated; Z98.890 Other specified postprocedural states; Z79.4 Long term (current) use of insulin; Z79.899 Other long term (current) drug therapy; X58.XXXD Exposure to other specified factors, subsequent encounter ==

== ENCOUNTER → 2024-10-25 | Outpatient (CLI) | payer BC | END | disposition home or self-care (01) | LOC: WOUNDCARE 02:23 | PROVIDERS: ATTEND Nurse Practitioner Family | DX: E11.621 Type 2 diabetes mellitus with foot ulcer (principal); L97.521 Non-pressure chronic ulcer of other part of left foot limited to breakdown of skin; S91.301D Unspecified open wound, right foot, subsequent encounter; S91.302D Unspecified open wound, left foot, subsequent encounter; L84 Corns and callosities; R60.0 Localized edema; I11.0 Hypertensive heart disease with heart failure; I50.32 Chronic diastolic (congestive) heart failure; I87.2 Venous insufficiency (chronic) (peripheral); I48.91 Unspecified atrial fibrillation; E11.40 Type 2 diabetes mellitus with diabetic neuropathy, unspecified; E11.51 Type 2 diabetes mellitus with diabetic peripheral angiopathy without gangrene; J45.909 Unspecified asthma, uncomplicated; Z79.4 Long term (current) use of insulin; Z79.899 Other long term (current) drug therapy; Z98.890 Other specified postprocedural states; X58.XXXD Exposure to other specified factors, subsequent encounter ==

== ENCOUNTER → 2025-02-10 | Outpatient (CLI) | payer BC ==
[2025-02-10 10:04] LABS: BILIRUBIN Negative (Negative); BLOOD Negative (Negative); CLARITY Clear (Clear); COLOR Yellow (Yellow); KETONE Negative (Negative); LEUKO ESTERASE Negative (Negative); NITRITE Negative (Negative); PH 6.5 (4.5-8.0); SPECIFIC GRAVITY 1.025 (1.001-1.030); UROBILINOGEN 1.0 E.U./dl (0.0-1.0)
[2025-02-10 10:15] LABS: EPITHELIAL CELLS 0-2; HYALINE CAST 0-2; WBC 0-2 wbc/hpf (0-5)
[2025-02-10 10:32] LABS: BUN 25.0 mg/dl (9-23); LDL CHOLESTEROL 99.0 mg/dL (9-159); SGPT/ALT 17.0 U/L (5-49)
== END | disposition home or self-care (01) ==
LOC: LAB 09:37
PROVIDERS: ATTEND Internal Medicine
DX: E11.29 Type 2 diabetes mellitus with other diabetic kidney complication (principal); E78.5 Hyperlipidemia, unspecified; E55.9 Vitamin D deficiency, unspecified